=== PATIENT | female | born 1970 | race Caucasian/White ===

== ENCOUNTER 2017-07-02 14:12 | Inpatient (IN) | payer SELFPAY ==
[2017-07-02 15:10] LABS: Hemoglobin 16.2 g/dL (12.0-16.0); Mean Corpuscular HGB CONC 33.8 g/dL (32.0-36.0); Mean Corpuscular Hemoglobin 34.4 pg (27.0-31.0); RBC Distribution Width 12.5 % (11.5-14.5); Red Blood Cell (RBC) Count 4.72 mill/uL (4.20-5.40); White Blood Cell (WBC) Count 2.9 thou/uL (4.8-10.8)
[2017-07-02 15:26] LABS: ALT (SGPT) 75 U/L (8-55); AST (SGOT) 166 U/L (5-34); Alkaline Phosphatase 156 U/L (40-150); Anion Gap 12 mmol/L (10-20); BUN (Urea Nitrogen) 12 mg/dL (7.0-18.7); Bilirubin, Direct 7.9 mg/dL (0.1-0.3); Bilirubin, Total 10.3 mg/dL (0.2-1.2); Calc. Creatinine Clearance 0 mL/min (70-130); Calcium 8.7 mg/dL (7.8-10.44); Carbon Dioxide 22 mmol/L (22-29); Chloride 103 mmol/L (98-107); Estimated GFR-MDRD Greater than 90; Globulin 4.4 g/dL (2.4-3.5); Glucose 89 mg/dL (70-105); Lipase 42 U/L (8-78); Potassium 3.7 mmol/L (3.5-5.1); Protein, Total 7.4 g/dL (6.0-8.3); Sodium 133 mmol/L (136-145)
[2017-07-02 15:33] LABS: #Lymphocytes 0.9 thou/uL (1.20-3.40); #Monocytes 0.2 thou/uL (0.11-0.59); #Neutrophils 1.7 thou/uL (1.40-6.50); %Eosinophils 1.1 % (0.0-10.0); %Lymphocytes 32.2 % (21.0-51.0); %Monocytes 8.3 % (0.0-10.0); %Neutrophils 57.4 % (42.0-75.0); PLT Morphology Comment Appears Decreased; Platelet Count 42 thou/uL (130-400)
--- NOTE | 2017-07-02 16:03 | ULT ---
GALLBLADDER ULTRASOUND: 07/02/17 COMPARISON: No prior comparison. CLINICAL HISTORY: Abdominal pain, epigastric pain. FINDINGS: There is increased echogenicity of hepatic parenchyma. Distended gallbladder with abnormal increased echogenicity and shadowing present. Gallbladder wall is mildly prominent, slightly greater than 3 mm in thickness. The common duct is mildly dilated at 6 mm in diameter. IMPRESSION: 1. Evidence of cholelithiasis. Associated cholecystitis not excluded with a mildly thickened gal lbladder wall. Correlate clinically. 2. Mild prominence of common duct. Recommend correlation with biliary laboratory values to exclu de biliary obstructive process. 3. Increased echogenicity of the hepatic parenchyma which can be seen with hepatic steatosis. Co rrelation with liver function enzymes may prove useful. POS: OSCAR
[2017-07-02 17:00] LABS: INR-International Normal Ratio 1.4; Prothrombin Time 17.3 SEC (12.0-14.7)
[2017-07-02 17:04] LABS: PTT 33.4 SEC (22.9-36.1)
[2017-07-02] MEDS ORDERED: Sodium Chloride 0.9% 1,000 ML IV SCH (17:15)
[2017-07-02] MEDS ORDERED: Dextrose 50% Abboject 50 ML SYRINGE SLOW IVP PRN (17:46)
[2017-07-02] MEDS ORDERED: Dextrose 5% in Water 1,000 ML IV PRN (17:46)
[2017-07-02] MEDS ORDERED: Ondansetron ODT 4 MG TAB PO PRN (17:46)
[2017-07-02] MEDS ORDERED: Ondansetron HCl/PF 4 MG/2 ML Vial IVP PRN (17:46)
--- NOTE | 2017-07-02 17:49 | HP ---
DATE OF ADMISSION: 07/02/2017 HISTORY OF PRESENT ILLNESS: A 46-year-old woman presented to the emergency department with insidious onset sharp epigastric to right upper quadrant abdominal pain, which started mid morning yesterday. Pain started after breakfast. Next, the pain is described as severe, sharp, rated at 8/10 without any nausea or vomiting. Patient denies any bloating or flatulence. She denies any diarrhea. Although, she did not check her temperature. She broke out in sweats last night. She denies any chills. Patient presented to the emergency department today after her pain had intensified to 9-10/10. She is otherwise awake and alert. She moves all extremities and answers questions appropriately. Kae coma scale is 15. PAST MEDICAL HISTORY: Unremarkable. PAST SURGICAL HISTORY: She denies any previous surgeries. SOCIAL HISTORY: She is single, lives independently. 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 She drinks 6-7 beers a day and has done so for many years. She did have alcohol withdrawal 1 month ago. She denies any cigarette smoking or illicit drug abuse, although, she is exposed to tremendous amount of secondhand smoking due to working environment. FAMILY HISTORY: Notable for her mother who at the age 62 with complications of heart disease and a father at age 52 from complications of colon cancer. She denies any family history of diabetes mellitus. PREHOSPITALIZATION MEDICATION: None except for occasional Benadryl. ALLERGIES: Patient denies any known drug allergies. REVIEW OF SYSTEMS: A 10-point review of systems is essentially unremarkable except for as stated in past medical history and chief complaint. PHYSICAL EXAMINATION: GENERAL: This reveals a 46-year-old normally developed woman who is otherwise coherent and interactive and appears stated age. Patient is alert and oriented x3. She appears to be in no significant acute distress at the time of my evaluation, having received some intravenous morphine sulfate. VITAL SIGNS: Includes blood pressure 123/73, pulse 77, respiratory rate is 19, temperature 98.2 degrees Fahrenheit, oxygen saturation is 100% on room air. HEENT: Reveals normocephalic and atraumatic. Pupils are equally, round, and reactive to light and accommodation. She has bilateral scleral icterus present. Oral mucosa is dry, although pink with no intraoral lesions present. She has no jugular venous distention noted. HEART: Reveals regular rate and rhythm, no murmurs or gallops auscultated. LUNGS: Clear to auscultation bilaterally. Her breathing regular and unlabored. ABDOMEN: Soft with exquisite tenderness in the epigastrium to right upper quadrant. Liver and spleen are otherwise nonpalpable below costal margins. EXTREMITIES: Reveals 2+ radial and pedal pulses bilaterally. No ankle edema is present. NEUROLOGIC: Cranial nerves II-XII grossly intact bilaterally. No focal neurologic deficits are present. PERTINENT LABORATORY FINDINGS: Today includes a CBC with 2900 white blood cells , hemoglobin and hematocrit 16.2 and 48.0 respectively. Platelet count is low at 42,000. Metabolic profile: Sodium 133, potassium is 3.7, chloride is 103, bicarbonate is 22, BUN 12, creatinine 0.64, glucose is 89. Total bilirubin 10.3 , direct bilirubin 7.9, AST and ALT are elevated at 166 and 75 respectively. Alkaline phosphatase is also elevated at 156. Serum lipase is normal at 42. I have reviewed the abdominal ultrasound, which reveals multiple intraluminal gallstones and a dilated gallbladder with mild gallbladder wall thickening. The common bile duct size is dilated for this patient's age at 6.4 mm. IMPRESSION: 1. Acute cholecystitis with cholelithiasis. 2. Probable choledocholithiasis. 3. Leukopenia and thrombocytopenia, likely secondary to #1. 4. History of chronic alcoholism with possible acute alcoholic hepatitis PLAN: 1. We will ask Gastroenterology to evaluate the patient in consideration for preoperative ERCP. 2. Laparoscopic cholecystectomy plus or minus intraoperative cholangiogram. The above findings and plan has been discussed with the patient who indicates understanding of this information given. I have answered all questions. The patient has been made aware of the risks and benefits of the proposed surgery. Risks include, but not limited to bleeding, infection, injury to bile duct or surrounding structures. She indicates understanding of this information. Patient has granted consent for this admission and surgical intervention. SURYA
[2017-07-02] MEDS ORDERED: Thiamine HCl 200 MG/2 ML VIAL SLOW IVP SCH ×2 (18:00→20:00)
[2017-07-02] MEDS ORDERED: Piperacillin/Tazobactam 4.5 GM in Sodium Chloride 0.9% 100 ML IVPB SCH (18:00)
[2017-07-02] MEDS ORDERED: Acetaminophen 1,000 MG in Premix Bag 1 BAG IVPB SCH ×2 (18:00→20:00)
[2017-07-02] MEDS ORDERED: Ketorolac Tromethamine 30 MG/ML VIAL IVP SCH (18:00)
[2017-07-02 18:15] VITALS: BMI 31.1
[2017-07-02] MEDS: Sodium Chloride 0.9% 1,000 ML IV SCH (20:10)
[2017-07-02] MEDS: Famotidine/PF 20 mg/2ml Vial SLOW IVP SCH (20:14)
[2017-07-02] MEDS: Ketorolac Tromethamine 30 MG/ML VIAL IVP SCH (20:14)
[2017-07-02] MEDS: Piperacillin/Tazobactam 4.5 GM in Sodium Chloride 0.9% 100 ML IVPB SCH (20:28)
--- NOTE | 2017-07-02 21:01 | CON ---
DATE OF CONSULTATION: 07/02/2017 CHIEF COMPLAINT: Abdominal pain. HISTORY OF PRESENT ILLNESS: Ms. Whitman is a 46-year-old woman who presented to the emergency room t melisa with right upper quadrant pain. She reports that she woke up with pain in the right upper quadr ant 2 days ago and this remained constant throughout the day and worsened yesterday, but also remaine d constant throughout the day. The pain did worsen after breakfast this morning and she came to the emergency room for further care. She has had no nausea or vomiting with this. No chest pain or shor tness of breath, no fevers, no diarrhea or constipation. The pain is in the epigastric region and ra diates towards the right upper quadrant around towards the right back. She has had some similar shor t-lived episodes of pain around once a month, sometimes after meals. Her weight has been stable. Juanito patel denies prior liver problems. PAST MEDICAL HISTORY: Otherwise, negative. PAST SURGICAL HISTORY: Negative. FAMILY HISTORY: Positive for colon cancer in her father. He was diagnosed at age 51 and at age 52. Her mother of a heart attack at age 62. SOCIAL HISTORY: She admits to drinking 8-12 beers per day, sometimes more. Her friend with her osorio cates that she drinks much more heavily than that. 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 Her boyfriend owns a bar. She did quit smoking 13 years ago, but is exposed to a lot of secondhand smoke in the bar. Juanito patel denies drug use in the past. ALLERGIES: No known drug allergies. MEDICATIONS: Prior to admission, she took Aleve once 2 weeks ago. She has taken no Tylenol. REVIEW OF SYSTEMS: Negative x10 systems reviewed except as stated in history of present illness. PHYSICAL EXAMINATION: VITAL SIGNS: Temperature 97.8, pulse 77, blood pressure 105/68. GENERAL: She is in no acute distress. HEENT: She has scleral icterus. Oropharynx is clear, without lesions. NECK: There is no cervical or supraclavicular lymphadenopathy. SKIN: Reveals small spider angiomas on multiple areas in her chest. NEUROLOGIC: She has no asterixis. LUNGS: Clear to auscultation bilaterally. HEART: Regular rate and rhythm without murmur. ABDOMEN: Soft. Bowel sounds are present. She is tender to palpation in the right upper quadrant wi thout guarding. EXTREMITIES: No lower extremity edema. Of note, she did have morphine in the ER prior to my exam now on the floor. LABORATORY DATA: White blood cell count 2.9, hemoglobin 16.2, platelets 42. INR 1.4, creatinine 0.6 4, bilirubin 10.3, direct bilirubin 7.9, AST 166, ALT 75, alkaline phosphatase 156, albumin 3.0, lipa se 42, globulin 4.4. IMAGING: Ultrasound of the gallbladder shows cholelithiasis. There is mild thickening of the gallbl adder wall without other signs of acute cholecystitis. The common bile duct is 6 mm. There is incre ased echogenicity of the liver. IMPRESSION: 1. Acute alcoholic hepatitis, most likely with underlying cirrhosis. Her AST is twice the ALT. She has bilirubin significantly higher and proportion to the elevation of the alkaline phosphatase. Her albumin is low. Her platelets and white blood cell count are low, likely secondary to hypersplenism from portal hypertension. INR is elevated at 1.4. We will need to evaluate further causes of under lying liver disease including viral hepatitis panel. She does have an elevated globulin, so autoimmu ne hepatitis has to be considered as well; however, the transaminases are not significantly elevated to suggest acute autoimmune hepatitis. 2. Right upper quadrant pain. This could be due to symptomatic gallstones. The gallbladder wall th ickening is likely due to portal hypertension from the alcoholic hepatitis. Her right upper quadrant pain is suggestive of gallbladder origin; however, she would be high risk for surgery at this time a nd we will continue to monitor this clinically. HIDA scan will be nondiagnostic given the elevation of her bilirubin. I doubt that she has choledocholithiasis given a 6 mm bile duct and alternative ex planation for her elevated bilirubin. RECOMMENDATIONS: 1. We will check MRCP in the morning to rule out an obvious stone in the common bile duct; however, again, I think this is unlikely. 2. She should be supplemented with thiamine and monitored for delirium tremens. 3. Check viral hepatitis panel and markers for autoimmune liver disease and we will also send additi onal labs for other causes of liver disease. 4. Importance of alcohol cessation has been discussed with her. 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 He r friend also indicated that she was diagnosed with some type of liver disease previously, but there is no known history about this or prior workup as the patient does not admit to it at this time. 5. Discontinue acetaminophen. 6. She is being covered with antibiotics.
[2017-07-02] MEDS: Oxazepam 10 MG CAP PO SCH (21:11)
[2017-07-02 21:34] LABS: Iron 257 ug/dL (50-170); Iron Binding Capacity, Total 254 mcg/dL (265-497)
[2017-07-02 21:53] LABS: Ferritin 513.96 ng/mL (10-291)
[2017-07-02 23:56] LABS: Hep B Core Total Ab Non-Reactive (NonReactive); Hep B Core Total Index 0.12 S/CO (0-0.79)
[2017-07-03] MEDS: Ketorolac Tromethamine 30 MG/ML VIAL IVP SCH ×4 (01:40→20:59)
[2017-07-03] MEDS: Piperacillin/Tazobactam 4.5 GM in Sodium Chloride 0.9% 100 ML IVPB SCH ×4 (01:41→20:59)
[2017-07-03] MEDS: Sodium Chloride 0.9% 1,000 ML IV SCH ×3 (01:48→21:01)
[2017-07-03 02:24] LABS: HBSAg Index 0.36 S/CO (0-0.99); Hep B Surf Ag Non-Reactive S/CO (NonReactive)
[2017-07-03 02:25] LABS: HBSAB Concentration 0.03 mIU/mL; Hep B Surf AB Non-Reactive (NonReactive)
[2017-07-03 03:58] LABS: HBCM Index 0.12 S/CO (0-0.79); Hep A IgM AB Non-Reactive (NonReactive); Hep A IgM S/CO 0.17 S/CO (0-0.79); Hepatitis B Core IGM Abs Non-Reactive (NonReactive)
[2017-07-03 04:17] LABS: Hep C IgG Ab Reflex HepC Qnt (NonReactive)
[2017-07-03] MEDS: Oxazepam 10 MG CAP PO SCH ×3 (05:27→21:11)
[2017-07-03 05:54] LABS: #Eosinphils 0.1 thou/uL (0.0-0.7); #Lymphocytes 1.1 thou/uL (1.20-3.40); #Monocytes 0.4 thou/uL (0.11-0.59); #Neutrophils 1.6 thou/uL (1.40-6.50); %Basophils 0.4 % (0.0-1.0); %Eosinophils 1.6 % (0.0-10.0); %Lymphocytes 35.4 % (21.0-51.0); %Monocytes 11.6 % (0.0-10.0); %Neutrophils 50.9 % (42.0-75.0); Mean Corpuscular HGB CONC 33.4 g/dL (32.0-36.0); Mean Corpuscular Hemoglobin 34.6 pg (27.0-31.0); Mean Platelet Volume 7.9 fL (7.4-10.4); Platelet Count 35 thou/uL (130-400); RBC Distribution Width 12.5 % (11.5-14.5); Red Blood Cell (RBC) Count 4.03 mill/uL (4.20-5.40); White Blood Cell (WBC) Count 3.1 thou/uL (4.8-10.8)
[2017-07-03 06:15] LABS: Anion Gap 9 mmol/L (10-20); BUN (Urea Nitrogen) 16 mg/dL (7.0-18.7); Calc. Creatinine Clearance 172 mL/min (70-130); Calcium 8.1 mg/dL (7.8-10.44); Carbon Dioxide 23 mmol/L (22-29); Chloride 106 mmol/L (98-107); Estimated GFR-MDRD Greater than 90; Glucose 70 mg/dL (70-105); Magnesium 1.3 mg/dL (1.6-2.6); Phosphorus 3.8 mg/dL (2.3-4.7); Potassium 3.6 mmol/L (3.5-5.1); Sodium 134 mmol/L (136-145)
[2017-07-03] MEDS: Famotidine/PF 20 mg/2ml Vial SLOW IVP SCH ×2 (07:42→21:00)
[2017-07-03] MEDS: Multivit, Therapeutic 1 TAB PO SCH (07:44)
[2017-07-03] MEDS: Folic Acid 1 MG TAB PO SCH (07:45)
[2017-07-03 08:20] LABS: ALT (SGPT) 60 U/L (8-55); AST (SGOT) 124 U/L (5-34); Albumin 2.5 g/dL (3.5-5.0); Alkaline Phosphatase 133 U/L (40-150); Bilirubin, Direct 8.7 mg/dL (0.1-0.3); Bilirubin, Total 11.3 mg/dL (0.2-1.2); Protein, Total 5.9 g/dL (6.0-8.3)
[2017-07-03] MEDS ORDERED: FLU VACC QS2017-18 36 mo. & older 0.5 ML SYRINGE IM ONE (09:00)
--- NOTE | 2017-07-03 12:45 | MRI ---
MRI OF THE ABDOMEN NONCONTRAST MRCP NONCONTRAST WITH 3D VOLUME RENDING: Comparison: Preceding gallbladder ultrasound previous day. Clinical history: Abdominal pain, epigastric pain, cholelithiasis. Evaluate for choledocholithiasis. FINDINGS: Motion artifact markedly limits evaluation of the MRCP imaging portion of the exam with multifocal ar eas of signal drop out due to distortion by motion which precludes reliable evaluation for potential choledocholithiasis. There are gallstones present within a mildly a distended gallbladder. There is m ild prominence of the gallbladder wall, as well. Slight degree of signal drop between in phase and ou t of phase imaging indicates a component of hepatic steatosis. Borderline sized spleen is noted. Unen hanced kidneys are grossly unremarkable. Limited evaluation of the adrenal glands by motion. No perip ancreatic edema. No ascites of significance visualized. Regional marrow is grossly unremarkable. IMPRESSION: 1. Cholelithiasis with a distended gallbladder and mild gallbladder wall thickening. Trace pericholec ystic fluid is seen. Correlate for evidence of cholecystitis. 2. Limited evaluation of the biliary ductal system due to distortion by prominent patient motion thro ughout the exam. This does preclude reliable evaluation for detection of choledocholithiasis as well as limits visualization of the biliary ducts. POS: OSCAR
[2017-07-03 14:43] LABS: ANA Symphony (Qualitative) POSITIVE (Negative); ANA Symphony (Quantitative) 2.5 Ratio (<0.7 Negative); CENP IgG Antibody 0.9 EliAU/mL (<7 Negative); Jo-1 IgG Antibody 0.6 EliAU/mL (<7 Negative); RNP70 IgG Antibody 0.5 EliAU/mL (<7 Negative); SSA/Ro IgG Antibody 0.5 EliAU/mL (<7 Negative); SSB/La IgG Antibody 0.7 EliAU/mL (<7 Negative); Scleroderma-70 IgG Antibody 1.7 EliAU/mL (<7 Negative); Smith D IgG Antibody 2.2 EliAU/mL (<7 Negative)
--- NOTE | 2017-07-03 17:35 | PRG ---
DATE OF SERVICE: 07/03/2017 SUBJECTIVE: Ms. Whitman's pain is greatly improved today. She has had no nausea or vomiting. She i s not requiring IV pain medicine since yesterday. OBJECTIVE: VITAL SIGNS: Temperature 97.4, pulse 89, blood pressure 109/71, oxygen saturation 94% on 2 liters. GENERAL: She is jaundiced, in no acute distress. LUNGS: Clear to auscultation bilaterally. HEART: Regular rate and rhythm. ABDOMEN: Soft, much less tender in the right upper quadrant than yesterday. Bowel sounds are presen t. EXTREMITIES: No lower extremity edema. LABORATORY DATA: White blood cell count 3.1, hemoglobin 14.0, platelets 35. INR 1.4 yesterday. Cre atinine 0.68, bilirubin 11.3, AST 124, ALT 60, alkaline phosphatase 133, albumin 2.5. Hepatitis C an tibody was positive, hepatitis B antigen is negative. Hepatitis A IgM is negative. IMPRESSION: 1. Acute alcoholic hepatitis. She likely has underlying cirrhosis. Her hepatitis C antibody is pos itive and we will check genotype and RNA level. She has evidence of decompensation with an elevated INR and low albumin. Her bilirubin is significantly elevated consistent with acute alcoholic hepatit is. Alkaline phosphatase has returned to normal. I doubt that she has choledocholithiasis. MRCP to day was nondiagnostic with motion artifact. 2. Possible cholecystitis with right upper quadrant pain and gallstones and gallbladder wall thicken ing. The mild gallbladder wall thickening and fluid could be related to portal hypertension; however , given the gallstones and right upper quadrant pain, she certainly could have cholecystitis. Her pa in is much improved today with antibiotics. She would be very high risk for surgery at this point an d we will continue to try to treat this medically for now. Again, her pain is markedly improved toda y compared to yesterday. RECOMMENDATIONS: 1. Continue supportive care and IV antibiotics. 2. Monitor for DTs. She has received thiamine and multiple vitamins. 3. We will continue to follow the trend of liver function tests including INR tomorrow. 4. Alcohol cessation.
--- NOTE | 2017-07-03 20:09 | PRG ---
DATE OF SERVICE: 07/03/2017 SUBJECTIVE: I saw Ms. Whitman earlier today. She is a 46-year-old woman with history of chronic alc oholism, who presented with epigastric to right upper quadrant abdominal pain. LFTs were markedly el evated. Gallbladder also on image studies was dilated with intraluminal gallstones as well as gallbl adder wall thickening. MRCP today also confirms inflammation around the gallbladder with intralumina l gallstones, no evidence of choledocholithiasis. The patient reports decreasing abdominal pain from yesterday. She denies any nausea. OBJECTIVE: VITAL SIGNS: Today include a blood pressure 101/63, pulse 81, respiratory rate of 16, temperature 97 .5 degrees Fahrenheit, oxygen saturation 94% on room air. HEENT: Reveals normocephalic and atraumatic. Pupils remain icteric. HEART: Reveals regular rate and rhythm, no murmurs or gallops auscultated. LUNGS: Clear to auscultation bilaterally. Breathing is regular and unlabored. ABDOMEN: Soft with moderate epigastric to right upper quadrant tenderness to palpation. No gross re bound tenderness present. NEUROLOGIC: Reveals no focal deficits present. LABORATORY DATA: Today includes a CBC with 3100 white blood cells, hemoglobin is 14.0, hematocrit is 41.8, platelet count is 35,000. Metabolic profile: Sodium 134, potassium 3.6, chloride is 106, bic arbonate 23, BUN 16, creatinine 0.68, glucose 70, magnesium is 1.3, total bilirubin 11.3, direct bili bear 8.7, AST and ALT remain elevated at 124 and 60 respectively. Alkaline phosphatase is within no rmal range today at 133. IMPRESSION: 1. Acute alcoholic hepatitis. 2. Acute cholecystitis with cholelithiasis. PLAN: 1. Discussed with Dr. Orona with Gastroenterology. We both concurred that the patient is a high ris k for any operative intervention in the face of an acute alcoholic hepatitis. 2. We will therefore continue with the conservative management including antibiotic therapy to cover the usual bacteria in the biliary tract. 3. We will resume full liquid diet as patient tolerates. The above findings and plan discussed with the patient and her family at bedside. They indicated und erstanding of information given. I did answer their questions.
[2017-07-04] MEDS: Sodium Chloride 0.9% 1,000 ML IV SCH ×3 (01:43→21:47)
[2017-07-04] MEDS: Piperacillin/Tazobactam 4.5 GM in Sodium Chloride 0.9% 100 ML IVPB SCH ×4 (02:30→21:47)
[2017-07-04] MEDS: Ketorolac Tromethamine 30 MG/ML VIAL IVP SCH ×4 (02:30→21:46)
[2017-07-04 03:16] LABS: Hepatitis A Total ABS Positive (Negative)
[2017-07-04] MEDS: Oxazepam 10 MG CAP PO SCH ×3 (05:25→21:47)
[2017-07-04 05:51] LABS: INR-International Normal Ratio 1.7; Prothrombin Time 20.6 SEC (12.0-14.7)
[2017-07-04 06:12] LABS: ALT (SGPT) 46 U/L (8-55); AST (SGOT) 96 U/L (5-34); Albumin 2.3 g/dL (3.5-5.0); Alkaline Phosphatase 133 U/L (40-150); Anion Gap 10 mmol/L (10-20); BUN (Urea Nitrogen) 16 mg/dL (7.0-18.7); Bilirubin, Total 12.4 mg/dL (0.2-1.2); Calc. Creatinine Clearance 170 mL/min (70-130); Calcium 7.7 mg/dL (7.8-10.44); Carbon Dioxide 20 mmol/L (22-29); Chloride 108 mmol/L (98-107); Estimated GFR-MDRD Greater than 90; Globulin 3.5 g/dL (2.4-3.5); Glucose 80 mg/dL (70-105); Potassium 3.5 mmol/L (3.5-5.1); Protein, Total 5.8 g/dL (6.0-8.3); Sodium 134 mmol/L (136-145)
[2017-07-04 06:21] LABS: #Eosinphils 0.1 thou/uL (0.0-0.7); #Lymphocytes 0.7 thou/uL (1.20-3.40); #Monocytes 0.3 thou/uL (0.11-0.59); #Neutrophils 1.4 thou/uL (1.40-6.50); %Eosinophils 2.5 % (0.0-10.0); %Lymphocytes 27.8 % (21.0-51.0); %Monocytes 10.4 % (0.0-10.0); %Neutrophils 58.4 % (42.0-75.0); Hemoglobin 13.6 g/dL (12.0-16.0); Mean Corpuscular HGB CONC 33.6 g/dL (32.0-36.0); Mean Corpuscular Hemoglobin 34.9 pg (27.0-31.0); Mean Platelet Volume 7.8 fL (7.4-10.4); Platelet Count 36 thou/uL (130-400); RBC Distribution Width 12.8 % (11.5-14.5); Red Blood Cell (RBC) Count 3.91 mill/uL (4.20-5.40); White Blood Cell (WBC) Count 2.4 thou/uL (4.8-10.8)
[2017-07-04] MEDS: Multivit, Therapeutic 1 TAB PO SCH (08:38)
[2017-07-04] MEDS: Folic Acid 1 MG TAB PO SCH (08:38)
[2017-07-04] MEDS: Famotidine/PF 20 mg/2ml Vial SLOW IVP SCH ×2 (08:39→21:46)
--- NOTE | 2017-07-04 12:18 | PDOC.PN ---
- Subjective Encounter Start Date: 07/04/17 Encounter Start Time: 12:10 -: old records requested/rev Pt seen and exmained, chart reviewed in its entirety, this si my first visit iwth this patient. Admitted 2 days ago for RUQ pain, cholelithiasis, probably cholecystitis, heavy EtOH use and increased LFTs. Admitted by Trauma team, felt to not be a good surgical candidate, improving onIV abx. AI hepatitis now possible with anti-U1 [employer] antibodies positive, Pt also Hep C positive, RNA VL pending due to no plans for surgery, we were asked to assume care. No F/c, no N/V,D/C, no CP or SOB, RUQ pain improved 10 point ROS performed and neg for all systems except as per HPI - Objective Resuscitation Status: Resuscitation Status FULL:Full Resuscitation MAR Reviewed: Yes Vital Signs & Weight: Vital Signs (12 hours) Temp Pulse Resp BP Pulse Ox 07/04/17 08:00 97.8 F 88 24 H 07/04/17 07:19 97.8 F 88 24 H 123/74 91 L 07/04/17 06:20 82 18 86 L 07/04/17 04:08 98.2 F 80 20 99/61 90 L Weight Weight 230 lb I&O: 07/03/17 07/04/17 07/05/17 06:59 06:59 06:59 Intake Total 1645 1500 Balance 1645 1500 Result Diagrams: 07/04/17 05:24 07/04/17 05:24 Radiology Reviewed by me: Yes EKG Reviewed by me: Yes Phys Exam - Physical Examination Constitutional: NAD HEENT: PERRLA, moist MMs, oral pharynx no lesions +icterus Neck: no nodes, no JVD, supple, full ROM Respiratory: no wheezing, no rales, no rhonchi, clear to auscultation bilateral Cardiovascular: RRR, no significant murmur, no rub Gastrointestinal: soft, no distention, positive bowel sounds minimal tenderness to palpation Musculoskeletal: no edema, pulses present Neurological: non-focal, normal sensation, moves all 4 limbs Lymphatic: no nodes Psychiatric: normal affect, A&O x 3 Skin: no rash, normal turgor, cap refill <2 seconds Dx/Plan - Plan * .
--- NOTE | 2017-07-04 17:06 | CON ---
INITIAL INPATIENT CONSULTATION NOTE DATE OF CONSULTATION: 07/04/2017 REQUESTING PHYSICIAN: Pino Hugo D.O. REASON FOR CONSULTATION: Transfer of service. HISTORY OF PRESENT ILLNESS: Ms. Whitman is a pleasant 46-year-old female with history of chronic alc ohol use, no other known history. She presented to the Emergency Department initially on 07/02/2017 with complaints of abdominal pain. Workup in the Emergency Department revealed transaminitis. Abdominal ultrasound showed mild perichol ecystic fluid, multiple gallstones, but no evidence of ductal dilatation or ductal obstruction, and s he was subsequently admitted to the Trauma Service on the morning of 07/02/2017. GI was consulted for concern of possible choledocholithiasis, and patient was seen by Dr. Orona. He thought she had alcoholic hepatitis, and less likely to be choledocholithiasis. [facility], hepatitis A, B, and C antibodies, and thought she had some mild compensated cirrhosis due to a low white count, platelets, albumin and increased INR. The patient was started on antibiotics empirically and felt to not be a very good operative candidate . Overnight 07/02-07/03, she remained fairly stable. She had no fevers, her vital signs showed a no rmal heart rate and a blood pressure in the low 100s. On 07/03/2017, she underwent MRI of the abdomen that showed cholelithiasis and distended gallbladder and mild gallbladder wall thickening with trace pericholecystic fluid. There was too much motion art ifact to get a good assessment of the biliary ductal system. Hepatitis C serologies came back positive A and it was positive for past infection, but not current, and hepatitis B serologies were negative. She was placed on ASE protocol, felt to have alcoholic, vi ral hepatitis C, possible autoimmune, and biliary hepatitis. On 07/04/2017, the patient was deemed to be an operative candidate. I was consulted by the Trauma Se rvmary to evaluate the patient and transfer to my service for ongoing medical care. PAST MEDICAL HISTORY: 1. Alcohol abuse. 2. Probable cirrhosis. 3. New diagnosis of hepatitis C, status unknown. 4. Past history of hepatitis A. 5. 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 PAST SURGICAL HISTORY: Negative. HOME MEDICATIONS: None. ALLERGIES: NKDA. SOCIAL HISTORY: She is single, lives independently. 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 She did have some alcohol w ithdrawal symptoms about a month ago when she tried to quit drinking. She does not smoke cigarettes, use IV drugs. FAMILY HISTORY: Mom at age 62 with complications of heart disease. Dad at age 52 with col on cancer complications. No family history of diabetes or recurrent premature coronary disease. No history of SLE or rheumatoid arthritis. REVIEW OF SYSTEMS: A 10-point review of systems was performed and is negative for all systems except as stated per HPI. PHYSICAL EXAMINATION: VITAL SIGNS: Temperature 97.9, pulse 79, blood pressure 117/77, respiratory rate 15 and satting 91% on 2 liters nasal cannula. GENERAL: She is awake. She is alert. She is oriented x3. She is jaundiced appearing obese white f emale who is in no acute distress. HEENT: Normocephalic and atraumatic. Pupils are equal, round and reacting to light bilaterally. Sh e has bilateral scleral icterus. Mucous membranes are moist. She has no visible lesions. She has n o thrush. NECK: Supple, without lymphadenopathy, JVD, or thyromegaly. She has normal carotids without bruits. LUNGS: Clear to auscultation bilaterally. She has no wheezes, no rales, no rhonchi. She has good a ir movement and symmetrical chest excursion. No prolonged expiratory phase. CARDIOVASCULAR: She has normal cardiac and regular. Normal S1 and S2. She has a faint holosystolic murmur best heard at the apex. Approximately 2/6. ABDOMEN: Obese. It is minimally tender. She has no rebound, rigidity or guarding. She has good cedric wel sounds in all 4 quadrants. I do not detect hepatosplenomegaly. EXTREMITIES: No cyanosis, no clubbing. Trace pedal edema. SKIN: Warm, moist and well perfused. She is jaundiced, but there are no other rashes or lesions. MUSCULOSKELETAL: Normal to inspection. She has normal appearing joints. There is no inflammation a nd no palpable effusions. NEUROLOGIC: Cranial nerves II-XII are grossly intact. She has no focal neurologic deficits. She munguia s 5/5 strength in all 4 extremities. PSYCHIATRIC: She has normal speech pattern. LABORATORY DATA: White blood cell count today is 2.4, which is stable, hemoglobin 13.6, hematocrit o f 44.5, and platelet count is 36,000 relatively stable. She has a fairly normal differential. Coagu lation today showed a PT of 20.6 with an INR of 1.7. CMP today shows sodium of 134, potassium 3.5, c hloride 108, bicarbonate 20, BUN 16, creatinine 0.69 and calcium 7.7. Total bilirubin today is 12.4, slightly increased from yesterday at 11.3. AST is 96, down from 166 on admission. Her ALT is tania l at 46, down from 75 on admission. Alkaline phosphatase today is 133, down from 156 on admission. Serum albumin is 2.3, down from 3.0 on admission. She had an KRYSTA panel drawn on 07/02 that is positi ve on the screen. There is no listed titer. Her anti-U1 DRILLING AND PRODUCTION SUPERINTENDENT IgG was 21, which is elevated above the normal of 5. The rest of her KRYSTA panel is otherwise negative. Serologic studies showed a positive hepatitis A antibody total and a negative IgM meaning past exposure. She had negative hepatitis B quiroz rface antigen, surface antibody, core antibody total and core IgM. Hepatitis C antibody is positive reflex. Hepatitis C quantitative. PCR is currently pending. ASSESSMENT: 1. Acute cholecystitis. 2. Probable autoimmune hepatitis and mixed connective tissue disease. 3. Chronic alcohol abuse with acute alcoholic hepatitis. 4. Hepatitis C, likely chronic, status currently unknown. 5. Probable cirrhosis. 6. Coagulopathy related to cirrhosis. 7. Leukopenia and thrombocytopenia secondary to cirrhosis. 8. Jaundice/hyperbilirubinemia. PLAN: At this point, we will continue the patient on Zosyn. We will likely streamline to Unasyn osmin orrow. We will repeat labs in the morning. The patient is currently on a full liquid diet, we will advance per GI recommendations. Surgery has now signed off due to her multiple comorbidities, not a candidate for operative laparoscopic cholecystectomy. We have accepted to the medical service, I jordyn l assume the care and change the attending name to myself. We will continue her on IV fluids and may start on prednisone acutely if we feel this is autoimmune related. We will discuss with Dr. Apollo Orona.
--- NOTE | 2017-07-04 17:22 | PRG ---
DATE OF SERVICE: 07/04/2017 ATTENDING PHYSICIAN: Pino Hugo DO SUBJECTIVE: The patient is a 46-year-old female with a history of alcoholism, who presented with epi gastric and right upper quadrant pain on 07/02/2017. She had markedly elevated LFTs which were initi ally thought to be due to choledocholithiasis and cholelithiasis. GI was consulted and further alexis p revealed a picture more consistent with alcoholic hepatitis, possibly with autoimmune involvement a s the patient was KRYSTA positive. The patient was determined to be a poor surgical candidate. At the time of this evaluation, the patient is reporting decreased abdominal pain. She has had some nausea with meals, but has not had any emesis. OBJECTIVE: VITAL SIGNS: BP 123/74, pulse 88, temperature 97.8, respirations 24, O2 sat 91% on 1.5 liters nasal cannula. GENERAL APPEARANCE: Patient is a middle-aged female who appears jaundiced, but in no acute distress. HEENT: She is normocephalic and atraumatic. She does demonstrate scleral icterus. RESPIRATORY: Her lungs are clear to auscultation bilaterally. She has normal effort of breathing. CARDIOVASCULAR: She has a regular rate and rhythm. She has no murmurs, gallops or rubs. ABDOMEN: She has a moderate epigastric and right upper quadrant tenderness to palpation. Her abdome n is nondistended. She has normal bowel sounds. NEUROLOGIC: She has no focal deficits. She is alert and oriented x3. Her GCS is 15. LABORATORY DATA: White blood cells 2.4, hemoglobin 13.6, hematocrit 40.5, platelets 36. Coagulation : PT 20.6, INR 1.7. Chemistry: Sodium 134, potassium 3.5, chloride 108, bicarbonate 20, BUN 16, cr eatinine 0.69, calcium 7.7. Total bilirubin 12.4. AST 96, ALT 46, alkaline phosphatase 133, serum t otal protein 5.8, albumin 2.3, globulin 3.5, albumin globulin ratio 0.7. RADIOGRAPHIC FINDINGS: There are no images to review today. ASSESSMENT: 1. Acute alcoholic hepatitis. 2. Acute cholecystitis with cholelithiasis. PLAN: 1. There is no indication for surgical intervention with this patient given her likely acute alcohol ic hepatitis. 2. Surgery will sign off on this patient. Dr. Pimentel has agreed to take over care of this patient w ith the medicine service. Please do not hesitate to contact surgery with further questions or with suha dunbar consultation needs if they arise. This patient was seen and examined along with Dr. Pino coker on rounds, who agrees with this assessment and plan.
--- NOTE | 2017-07-04 21:32 | PRG ---
DATE OF SERVICE: 07/04/2017 SUBJECTIVE: Ms. Whitman feels better today. She wants to live more. She is tolerating a full-liqui d diet. PRESENT MEDICATIONS: DuoNeb, D5W, Pepcid, Toradol p.r.n., morphine p.r.n., Theragran p.r.n., Zofran p.r.n., Zosyn, normal saline 100, thiamine, multivitamin, folic acid. PHYSICAL EXAMINATION: VITAL SIGNS: Temperature is 97, pulse 92, blood pressure 114/71. EYES: She is mildly icteric. LUNGS: Clear. HEART: Regular rate and rhythm. ABDOMEN: Nontender. There is no palpable tenderness in the right upper quadrant. She has some slig ht protuberance in the abdomen. EXTREMITIES: She has got some trace edema. She has spider angiomata and she has palmar erythema. LABORATORY STUDIES: White count 2.4, hemoglobin 13.6, platelet count 36,000. Sodium 134, BUN and cr eatinine are 16 and 0.9, chloride is 108, potassium 3.5, bicarbonate 20, anion gap 6, bilirubin is 12 . AST is 96, ALT is 46, alkaline phosphatase is 133. KRYSTA is positive. Smooth muscle antibody and m icro antibody are pending. ASSESSMENT: 1. Elevated liver enzymes, history of heavy alcohol use according to patient's friend. She also sta jocelyn she has occasionally had at times where she has had a big night. She does not drink and the next day she will become shaky and has slight withdrawal symptoms. She has never had delirium tremens. I suspect, the main issue here is acute alcoholic hepatitis, serologies for other etiologies are pend ing. 2. Hepatitis C antibody positive. Reflex is pending. 3. Gallstones, although it is possible that the patient also have acute cholecystitis. In talking t o her, she has not ever had any symptoms of biliary colic in the past before being sick in this past week. She has not had a right upper quadrant pain. I think, it is reasonable to consider treating h er for this. We will continue to push nutrition if she does well tomorrow, we will put her on a low- fat diet.
[2017-07-05] MEDS: Ketorolac Tromethamine 30 MG/ML VIAL IVP SCH ×2 (03:09→08:29)
[2017-07-05] MEDS: Piperacillin/Tazobactam 4.5 GM in Sodium Chloride 0.9% 100 ML IVPB SCH ×4 (03:10→20:54)
[2017-07-05] MEDS: Oxazepam 10 MG CAP PO SCH ×3 (05:27→21:00)
[2017-07-05 05:56] LABS: #Eosinphils 0.1 thou/uL (0.0-0.7); #Lymphocytes 0.6 thou/uL (1.20-3.40); #Monocytes 0.3 thou/uL (0.11-0.59); #Neutrophils 1.5 thou/uL (1.40-6.50); %Basophils 0.9 % (0.0-1.0); %Eosinophils 2.6 % (0.0-10.0); %Lymphocytes 25.3 % (21.0-51.0); %Monocytes 10.4 % (0.0-10.0); %Neutrophils 60.9 % (42.0-75.0); Mean Corpuscular HGB CONC 32.3 g/dL (32.0-36.0); Mean Corpuscular Hemoglobin 34.6 pg (27.0-31.0); Mean Platelet Volume 7.7 fL (7.4-10.4); Platelet Count 39 thou/uL (130-400); RBC Distribution Width 13.1 % (11.5-14.5); Red Blood Cell (RBC) Count 3.77 mill/uL (4.20-5.40); White Blood Cell (WBC) Count 2.5 thou/uL (4.8-10.8)
[2017-07-05 06:28] LABS: ALT (SGPT) 42 U/L (8-55); AST (SGOT) 85 U/L (5-34); Albumin 2.3 g/dL (3.5-5.0); Alkaline Phosphatase 137 U/L (40-150); Anion Gap 9 mmol/L (10-20); BUN (Urea Nitrogen) 12 mg/dL (7.0-18.7); Bilirubin, Total 13.7 mg/dL (0.2-1.2); Calc. Creatinine Clearance 175 mL/min (70-130); Calcium 7.6 mg/dL (7.8-10.44); Carbon Dioxide 20 mmol/L (22-29); Chloride 109 mmol/L (98-107); Estimated GFR-MDRD Greater than 90; Globulin 3.4 g/dL (2.4-3.5); Glucose 82 mg/dL (70-105); Magnesium 1.5 mg/dL (1.6-2.6); Potassium 3.4 mmol/L (3.5-5.1); Protein, Total 5.7 g/dL (6.0-8.3); Sodium 135 mmol/L (136-145)
[2017-07-05] MEDS: Sodium Chloride 0.9% 1,000 ML IV SCH ×3 (08:27→20:54)
[2017-07-05] MEDS: Folic Acid 1 MG TAB PO SCH (08:28)
[2017-07-05] MEDS: Multivit, Therapeutic 1 TAB PO SCH (08:28)
[2017-07-05] MEDS: Famotidine/PF 20 mg/2ml Vial SLOW IVP SCH (08:29)
[2017-07-05 11:15] LABS: HCV log10 3.004 (.); Hep C PCR-Quant 1010 IU/mL (.)
--- NOTE | 2017-07-05 16:32 | PDOC.PN ---
- Subjective Encounter Start Date: 07/05/17 Encounter Start Time: 11:40 pt feeling better, less pain, no f/C, no N/V/d/C, hungry, wanting to EAT. Case discussed with Dr Gray, plan to give fluids and albumin another day. 10 point ROS performed and neg for all systems except as epr hPI Hep C ab positive VL 1000, no likely source of acute issue, but likely contributary to cirrhosis - Objective Resuscitation Status: Resuscitation Status FULL:Full Resuscitation MAR Reviewed: Yes Vital Signs & Weight: Vital Signs (12 hours) Temp Pulse Resp BP Pulse Ox 07/05/17 13:38 84 20 90 L 07/05/17 11:41 97.5 F L 78 26 H 117/81 93 L 07/05/17 10:30 94 L 07/05/17 08:00 97.5 F L 93 22 H 07/05/17 07:41 97.5 F L 93 22 H 107/66 93 L 07/05/17 07:07 93 L 07/05/17 06:59 86 18 93 L Weight Weight 230 lb I&O: 07/04/17 07/05/17 07/06/17 06:59 06:59 06:59 Intake Total 1500 1750 Balance 1500 1750 Result Diagrams: 07/08/17 05:19 07/08/17 05:19 Phys Exam - Physical Examination Constitutional: NAD HEENT: PERRLA, moist MMs, oral pharynx no lesions +incterus Neck: no nodes, no JVD, supple, full ROM Respiratory: no wheezing, no rales, no rhonchi, clear to auscultation bilateral Cardiovascular: RRR, no significant murmur, no rub Gastrointestinal: soft, non-tender, no distention, positive bowel sounds Musculoskeletal: no edema, pulses present Neurological: non-focal, normal sensation, moves all 4 limbs Lymphatic: no nodes Psychiatric: normal affect, A&O x 3 Skin: no rash, normal turgor, cap refill <2 seconds Deviation from normal: + jaundice Dx/Plan (1) Alcoholic hepatitis without ascites Code(s): K70.10 - ALCOHOLIC HEPATITIS WITHOUT ASCITES Status: Acute Comment : improving daily (2) Chronic hepatitis Code(s): K73.9 - CHRONIC HEPATITIS, UNSPECIFIED Status: Acute Comment: total Ab positive, VL only 1000. will need Rx at some point with carmen (3) Acute calculous cholecystitis Code(s): K80.00 - CALCULUS OF GALLBLADDER W ACUTE CHOLECYST W/O OBSTRUCTION Status: Acute Comment: abx, no surgery insetting of suspected acute alcoholic hepatitis. (4) Alcohol dependence Code(s): F10.20 - ALCOHOL DEPENDENCE, UNCOMPLICATED Status: Chronic Qualifiers: Substance use status: in withdrawal Comment: on meds, ASE scores (5) Cirrhosis Code(s): K74.60 - UNSPECIFIED CIRRHOSIS OF LIVER Status: Acute Qualifiers: Hepatic cirrhosis type: alcoholic cirrhosis Ascites presence: without ascites Qualified Code(s): K70.30 - Alcoholic cirrhosis of liver without ascites Comment: probably due to chronic hep C also (6) Coagulopathy Status: Chronic Comment: due to cirrhosis (7) Thrombocytopenia Code(s): D69.6 - THROMBOCYTOPENIA, UNSPECIFIED Status: Chronic Comment: due to cirrosis-induced portal hypertension and sequestration - Plan cont current plan of care, plan discussed w/ family, continue antibiotics, PT/OT , out of bed/ambulate, DVT proph w/SCDs * .
--- NOTE | 2017-07-05 18:47 | PRG ---
DATE OF SERVICE: 07/05/2017 Ms. Whitman states she feels a bit tired today. She does note that certain medications make her feel a little bit nauseated. She had no melena or vomiting. She had no fever. Right upper quadrant brendan n is better. She wants to eat regular food. MEDICATIONS: Albuterol, Pepcid, folic acid, glucagon, Toradol, morphine p.r.n., Zofran p.r.n., Serax , Zosyn, normal saline 100 an hour, thiamine daily. OBJECTIVE: Temperature is 97.5, pulse 93, blood pressure 107/66. She does not have any tenderness o r guarding in the right upper quadrant. She is mildly protuberant. She is icteric. Extremities cordell w edema, trace. LABORATORIES STUDIES: White count is 2.5, hemoglobin is 13, platelet count 39,000. Sodium 135, pota ssium 3.4, BUN and creatinine are 12 and 0.67, bilirubin is 13.7, AST and ALT have come down further to 85 and 42, total protein 5.7, albumin 2.3. ASSESSMENT: 1. Alcoholic hepatitis, improving. 2. Likely cirrhosis from alcohol and hepatitis C. 3. Cholelithiasis. This may or may not be symptomatic. Her right upper quadrant pain is resolved. Some of this may be related to antibiotics, although a lot of that may be improving alcoholic hepati tis. 4. Positive KRYSTA markers antimitochondrial antibody pending. RECOMMENDATIONS: 1. We would get alpha fetoprotein. 2. Advance diet to low fat. 3. If she tolerates that we can hold her IV fluids. 4. Continue multivitamin, thiamine, folate. For now, continue antibiotics.
[2017-07-05] MEDS: Famotidine 20 MG TAB PO SCH (20:55)
[2017-07-06] MEDS: Piperacillin/Tazobactam 4.5 GM in Sodium Chloride 0.9% 100 ML IVPB SCH ×4 (01:17→20:47)
[2017-07-06 05:32] LABS: ALT (SGPT) 37 U/L (8-55); AST (SGOT) 82 U/L (5-34); Albumin 2.2 g/dL (3.5-5.0); Alkaline Phosphatase 138 U/L (40-150); Anion Gap 9 mmol/L (10-20); BUN (Urea Nitrogen) 9 mg/dL (7.0-18.7); Bilirubin, Total 15.8 mg/dL (0.2-1.2); Calc. Creatinine Clearance 195 mL/min (70-130); Calcium 7.5 mg/dL (7.8-10.44); Carbon Dioxide 19 mmol/L (22-29); Chloride 110 mmol/L (98-107); Estimated GFR-MDRD Greater than 90; Globulin 3.3 g/dL (2.4-3.5); Glucose 75 mg/dL (70-105); Magnesium 1.4 mg/dL (1.6-2.6); Potassium 3.5 mmol/L (3.5-5.1); Protein, Total 5.5 g/dL (6.0-8.3); Sodium 134 mmol/L (136-145)
[2017-07-06 05:34] LABS: #Eosinphils 0.1 thou/uL (0.0-0.7); #Lymphocytes 0.8 thou/uL (1.20-3.40); #Monocytes 0.3 thou/uL (0.11-0.59); #Neutrophils 1.6 thou/uL (1.40-6.50); %Basophils 0.5 % (0.0-1.0); %Eosinophils 2.6 % (0.0-10.0); %Lymphocytes 29.5 % (21.0-51.0); %Monocytes 10.3 % (0.0-10.0); %Neutrophils 57.1 % (42.0-75.0); Mean Corpuscular HGB CONC 33.4 g/dL (32.0-36.0); Mean Platelet Volume 8.3 fL (7.4-10.4); Platelet Count 39 thou/uL (130-400); RBC Distribution Width 13.3 % (11.5-14.5); Red Blood Cell (RBC) Count 3.71 mill/uL (4.20-5.40); White Blood Cell (WBC) Count 2.8 thou/uL (4.8-10.8)
[2017-07-06] MEDS: Oxazepam 10 MG CAP PO SCH (05:59)
[2017-07-06] MEDS: Multivit, Therapeutic 1 TAB PO SCH (08:25)
[2017-07-06] MEDS: Famotidine 20 MG TAB PO SCH ×2 (08:26→20:47)
[2017-07-06] MEDS: Folic Acid 1 MG TAB PO SCH (08:26)
[2017-07-06] MEDS: Sodium Chloride 0.9% 1,000 ML IV SCH (13:01)
[2017-07-06 16:08] LABS: Mitochondrial (M2) Antibody 22.9 Units (0.0-20.0); Smooth Muscle Total ABS 19 Units (0-19)
--- NOTE | 2017-07-06 22:26 | PRG ---
DATE OF SERVICE: 07/06/2017 SUBJECTIVE: Mimi ate last night and did okay, although she tried to eat a peanut butter and jelly sa [facility] and had some nausea. She did eat ice cream with no pain. She seems sleepy today and her frie nd notes that as well. MEDICATIONS: She is on albuterol; Pepcid; folic acid; glucagon; morphine p.r.n. 2 mg, she has not ta lena that; albuterol inhaler; normal saline 100 an hour; Zosyn; folic acid; multivitamin; thiamine. S he is on Serax, which she received last night. OBJECTIVE: VITAL SIGNS: Temperature is 97, pulse 99, respirations 30 to 16, blood pressure 155/66. She remains icteric. ABDOMEN: Nontender right upper quadrant. She has some slight ascites probably with some fluid wave. EXTREMITIES: Reveal trace edema. LABORATORY STUDIES: Sodium is 134, potassium 3.5, BUN and creatinine 9 and 0.6, magnesium is 1.4, ca lcium is 7.5, bilirubin is 15, AST is 82 and ALT is 37. Protein 5.5, albumin 2.2. Alpha antitrypsin pending. Iron studies are high with a serum iron of 257. TIBC 254 and ferritin 500. White count 2. 8, hemoglobin 13 and platelet count 39,000. Serology notable for positive hepatitis C antibody. She had an RNA of 1010. ASSESSMENT: 1. Likely cirrhosis from alcohol abuse with high iron saturation. This could be from hemosiderosis from alcohol or could be hemochromatosis trait, we need to check for that. 2. Alcoholic hepatitis. 3. Cholelithiasis with possible cholecystitis, she has no signs of fever, no pain at this time. PLAN: 1. We would finish a course of antibiotics and discontinue that. 2. She is tolerating some diet, but fatty foods made her little bit sick, reinforce low fat diet to her. 3. She looks sleepy. We will go and stop the Serax. She has been here in the hospital now for 5 da ys. I think, she has probably run the course in terms of withdrawal issues. If she needs something for agitation, may be a lower dose benzodiazepine will be more appropriate. She seems pretty somnole nt. We will also check an ammonia level.
[2017-07-07] MEDS: Sodium Chloride 0.9% 1,000 ML IV SCH ×2 (00:46→08:52)
[2017-07-07] MEDS: Piperacillin/Tazobactam 4.5 GM in Sodium Chloride 0.9% 100 ML IVPB SCH ×4 (02:47→20:48)
[2017-07-07 08:43] LABS: ALT (SGPT) 38 U/L (8-55); AST (SGOT) 85 U/L (5-34); Albumin 2.2 g/dL (3.5-5.0); Alkaline Phosphatase 142 U/L (40-150); Anion Gap 10 mmol/L (10-20); BUN (Urea Nitrogen) 8 mg/dL (7.0-18.7); Bilirubin, Total 17.2 mg/dL (0.2-1.2); Calc. Creatinine Clearance 214 mL/min (70-130); Calcium 7.8 mg/dL (7.8-10.44); Carbon Dioxide 20 mmol/L (22-29); Chloride 109 mmol/L (98-107); Estimated GFR-MDRD Greater than 90; Globulin 3.4 g/dL (2.4-3.5); Glucose 81 mg/dL (70-105); Potassium 3.5 mmol/L (3.5-5.1); Protein, Total 5.6 g/dL (6.0-8.3); Sodium 135 mmol/L (136-145)
[2017-07-07] MEDS: Famotidine 20 MG TAB PO SCH ×2 (08:51→20:49)
[2017-07-07] MEDS: Multivit, Therapeutic 1 TAB PO SCH (08:51)
[2017-07-07] MEDS: Folic Acid 1 MG TAB PO SCH (08:51)
--- NOTE | 2017-07-07 12:13 | PRG ---
DATE OF SERVICE: 07/07/2017 SUBJECTIVE: Ms. Whitman has no abdominal pain today. She is tolerating a low fat diet. OBJECTIVE: VITAL SIGNS: Temperature 98.2, pulse 97, blood pressure 121/68. GENERAL: She is jaundiced. She is in no acute distress. She is awake and alert. HEENT: Eyes have scleral icterus. LUNGS: Clear to auscultation bilaterally. HEART: Regular rate and rhythm. ABDOMEN: Soft, nontender, nondistended. Bowel sounds are present. EXTREMITIES: No lower extremity edema. IMPRESSION: 1. Acute alcoholic hepatitis. Her bilirubin continues to climb. She does have up to 25%-50% mortal ity over the next month associated with this. 2. Likely underlying cirrhosis with elevated INR, low albumin, low platelet count, spider angiomas. She is decompensated now. She has no encephalopathy at this point and no evidence of significant as cites by physical exam. She will ultimately require endoscopy for varices screening in the future. 3. Chronic hepatitis C. 4. Elevated iron saturation with hemochromatosis gene pending. RECOMMENDATIONS: 1. Alcohol cessation. This was again discussed in detail with her. 2. It will be essential that she try to obtain some type of insurance or payment source given that h er liver disease is likely to progress and she may ultimately require a liver transplant. 3. Continue a 10-day course of antibiotics for the suspected acute cholecystitis. She is a very poo r operative candidate at this point. With antibiotics, she is now pain free and tolerating a solid d iet. 4. In addition, a low fat diet. She should maintain a low salt diet. 5. Her oxygen saturations noted to run in the 88%-91% range on room air. I will defer this to the [facility] service.
[2017-07-07 14:17] LABS: Alpha-1-Antitrypsin 138 mg/dL (90-200)
--- NOTE | 2017-07-07 16:27 | PDOC.PN ---
- Subjective Encounter Start Date: 07/08/17 Encounter Start Time: 09:55 Pt less sleep today after stopping anti-withdrawl meds. No f/C, carmen PO. GI wanting to keep until bili better. No signs if withdrawl, no N/V/D/C. 10 point ROS performed and neg for all systems except as per hPIPt much more awake toda,y carmen po, ate better, no F/C, no N/V/D/C, no CP or sOB, some prolonged expiratiory phase, high pitched qwheezing No cough, no sputum 10 point ROS performed and neg for all systems except as per hPI - Objective Resuscitation Status: Resuscitation Status FULL:Full Resuscitation MAR Reviewed: Yes Vital Signs & Weight: Vital Signs (12 hours) Temp Pulse Resp BP Pulse Ox 07/07/17 12:00 98.3 F 86 14 122/76 90 L 07/07/17 08:00 98.2 F 97 18 121/68 88 L 07/07/17 07:20 81 14 93 L Weight Weight 257 lb I&O: 07/06/17 07/07/17 07/08/17 06:59 06:59 06:59 Intake Total 5360 1140 Balance 5360 1140 Result Diagrams: 07/08/17 05:19 07/08/17 05:19 Radiology Reviewed by me: Yes EKG Reviewed by me: Yes Phys Exam - Physical Examination Constitutional: NAD HEENT: PERRLA, moist MMs, oral pharynx no lesions + icterus Neck: no nodes, no JVD, supple, full ROM Respiratory: no wheezing, no rales, no rhonchi, clear to auscultation bilateral Cardiovascular: RRR, no significant murmur, no rub Gastrointestinal: soft, non-tender, no distention, positive bowel sounds Musculoskeletal: no edema, pulses present Neurological: non-focal, normal sensation, moves all 4 limbs Lymphatic: no nodes Psychiatric: normal affect, A&O x 3 Skin: no rash, normal turgor, cap refill <2 seconds Deviation from normal: jaundiced Dx/Plan (1) Acute calculous cholecystitis Code(s): K80.00 - CALCULUS OF GALLBLADDER W ACUTE CHOLECYST W/O OBSTRUCTION Status: Acute Comment: abx, no surgery insetting of suspected acute alcoholic hepatitis. (2) Alcoholic hepatitis without ascites Code(s): K70.10 - ALCOHOLIC HEPATITIS WITHOUT ASCITES Status: Acute Comment : improving daily (3) Alcohol dependence Code(s): F10.20 - ALCOHOL DEPENDENCE, UNCOMPLICATED Status: Chronic Qualifiers: Substance use status: in withdrawal Comment: on meds, ASE scores (4) Chronic hepatitis Code(s): K73.9 - CHRONIC HEPATITIS, UNSPECIFIED Status: Chronic Comment: total Ab positive, VL only 1000. will need Rx at some point with harvoni (5) Cirrhosis Code(s): K74.60 - UNSPECIFIED CIRRHOSIS OF LIVER Status: Chronic Qualifiers: Hepatic cirrhosis type: alcoholic cirrhosis Ascites presence: without ascites Qualified Code(s): K70.30 - Alcoholic cirrhosis of liver without ascites Comment: probably due to chronic hep C also (6) Coagulopathy Status: Chronic Comment: due to cirrhosis (7) Thrombocytopenia Code(s): D69.6 - THROMBOCYTOPENIA, UNSPECIFIED Status: Chronic Comment: due to cirrosis-induced portal hypertension and sequestration - Plan cont current plan of care, continue antibiotics * . home when okay with GI
--- NOTE | 2017-07-07 16:27 | PDOC.PN ---
- Subjective Encounter Start Date: 07/06/17 Encounter Start Time: 16:40 Pt more sleepy today, no F/c, no n/V/D/C. not as goo dpo intake today. no abd pain, no new complaints. 10 point ROS performed and neg for all systems except as per hPI - Objective Resuscitation Status: Resuscitation Status FULL:Full Resuscitation MAR Reviewed: Yes Vital Signs & Weight: Vital Signs (12 hours) Temp Pulse Resp BP Pulse Ox 07/07/17 12:00 98.3 F 86 14 122/76 90 L 07/07/17 08:00 98.2 F 97 18 121/68 88 L 07/07/17 07:20 81 14 93 L Weight Weight 257 lb I&O: 07/06/17 07/07/17 07/08/17 06:59 06:59 06:59 Intake Total 5360 1140 Balance 5360 1140 Result Diagrams: 07/08/17 05:19 07/08/17 05:19 Phys Exam - Physical Examination Constitutional: NAD HEENT: PERRLA, moist MMs, oral pharynx no lesions + icterus Neck: no nodes, no JVD, supple, full ROM Respiratory: no wheezing, no rales, no rhonchi, clear to auscultation bilateral Cardiovascular: RRR, no significant murmur, no rub Gastrointestinal: soft, non-tender, no distention, positive bowel sounds Musculoskeletal: no edema, pulses present Neurological: non-focal, normal sensation, moves all 4 limbs Lymphatic: no nodes Psychiatric: normal affect, A&O x 3 Skin: no rash, normal turgor, cap refill <2 seconds Deviation from normal: + jaundice Dx/Plan (1) Acute calculous cholecystitis Code(s): K80.00 - CALCULUS OF GALLBLADDER W ACUTE CHOLECYST W/O OBSTRUCTION Status: Acute Comment: abx, no surgery insetting of suspected acute alcoholic hepatitis. (2) Alcoholic hepatitis without ascites Code(s): K70.10 - ALCOHOLIC HEPATITIS WITHOUT ASCITES Status: Acute Comment : improving daily (3) Chronic hepatitis Code(s): K73.9 - CHRONIC HEPATITIS, UNSPECIFIED Status: Chronic Comment: total Ab positive, VL only 1000. will need Rx at some point with harvoni (4) Cirrhosis Code(s): K74.60 - UNSPECIFIED CIRRHOSIS OF LIVER Status: Chronic Qualifiers: Hepatic cirrhosis type: alcoholic cirrhosis Ascites presence: without ascites Qualified Code(s): K70.30 - Alcoholic cirrhosis of liver without ascites Comment: probably due to chronic hep C also (5) Alcohol dependence Code(s): F10.20 - ALCOHOL DEPENDENCE, UNCOMPLICATED Status: Chronic Qualifiers: Substance use status: in withdrawal Comment: on meds, ASE scores (6) Coagulopathy Status: Chronic Comment: due to cirrhosis (7) Thrombocytopenia Code(s): D69.6 - THROMBOCYTOPENIA, UNSPECIFIED Status: Chronic Comment: due to cirrosis-induced portal hypertension and sequestration - Plan * . Pt somnolent from meds for withdrawl prevention, will stop
[2017-07-08] MEDS: Piperacillin/Tazobactam 4.5 GM in Sodium Chloride 0.9% 100 ML IVPB SCH ×4 (01:32→20:46)
[2017-07-08 06:08] LABS: ALT (SGPT) 32 U/L (8-55); AST (SGOT) 82 U/L (5-34); Albumin 2.1 g/dL (3.5-5.0); Alkaline Phosphatase 130 U/L (40-150); Anion Gap 7 mmol/L (10-20); BUN (Urea Nitrogen) 7 mg/dL (7.0-18.7); Bilirubin, Total 18.7 mg/dL (0.2-1.2); Calc. Creatinine Clearance 189 mL/min (70-130); Calcium 7.8 mg/dL (7.8-10.44); Carbon Dioxide 23 mmol/L (22-29); Chloride 108 mmol/L (98-107); Estimated GFR-MDRD Greater than 90; Globulin 3.4 g/dL (2.4-3.5); Glucose 93 mg/dL (70-105); Magnesium 1.5 mg/dL (1.6-2.6); Potassium 3.6 mmol/L (3.5-5.1); Protein, Total 5.5 g/dL (6.0-8.3); Sodium 134 mmol/L (136-145)
[2017-07-08 07:53] LABS: #Eosinphils 0.1 thou/uL (0.0-0.7); #Lymphocytes 0.8 thou/uL (1.20-3.40); #Monocytes 0.3 thou/uL (0.11-0.59); #Neutrophils 1.6 thou/uL (1.40-6.50); %Basophils 0.4 % (0.0-1.0); %Eosinophils 3.8 % (0.0-10.0); %Lymphocytes 27.3 % (21.0-51.0); %Monocytes 12.2 % (0.0-10.0); %Neutrophils 56.2 % (42.0-75.0); MDiff Complete? YES; Macrocytosis SLIGHT = 6-15 cells (100X) (0-5/hpf); Mean Corpuscular Hemoglobin 34.7 pg (27.0-31.0); Mean Platelet Volume 8.5 fL (7.4-10.4); PLT Morphology Comment Appears Decreased; Platelet Count 44 thou/uL (130-400); RBC Distribution Width 13.6 % (11.5-14.5); Red Blood Cell (RBC) Count 3.74 mill/uL (4.20-5.40); White Blood Cell (WBC) Count 2.8 thou/uL (4.8-10.8)
[2017-07-08] MEDS: Multivit, Therapeutic 1 TAB PO SCH (09:17)
[2017-07-08] MEDS: Folic Acid 1 MG TAB PO SCH (09:17)
[2017-07-08] MEDS: Famotidine 20 MG TAB PO SCH ×2 (09:17→20:46)
--- NOTE | 2017-07-08 15:21 | RAD ---
TWO VIEW CHEST: History: Dyspnea. FINDINGS: Lung turk are clear. Heart and mediastinum unremarkable. Deformity of the left clavicle from old fr acture is noted. IMPRESSION: No acute abnormality. POS: [facility]
--- NOTE | 2017-07-08 16:25 | PDOC.PN ---
- Subjective Encounter Start Date: 07/07/17 Encounter Start Time: 11:40 better today, no acute events, no compalints, no new requestas. Bili continues to clinb, no itching. carmen po 10 point ROS performed and neg for all systems except as above - Objective Resuscitation Status: Resuscitation Status FULL:Full Resuscitation Vital Signs & Weight: Vital Signs (12 hours) Temp Pulse Resp BP BP Pulse Ox 07/08/17 16:21 97.7 F 88 14 124/79 94 L 07/08/17 16:17 95 07/08/17 14:05 93 L 07/08/17 14:00 87 L 07/08/17 12:20 98.6 F 85 32 H 115/72 94 L 07/08/17 08:10 98.5 F 85 16 145/73 H 91 L Weight Weight 257 lb I&O: 07/07/17 07/08/17 07/09/17 06:59 06:59 06:59 Intake Total 2039 Balance 2039 Result Diagrams: 07/08/17 05:19 07/08/17 05:19 Phys Exam - Physical Examination Constitutional: NAD HEENT: PERRLA, moist MMs, oral pharynx no lesions +icterus Neck: no nodes, no JVD, supple, full ROM Respiratory: no wheezing, no rales, no rhonchi, clear to auscultation bilateral Cardiovascular: RRR, no significant murmur, no rub Gastrointestinal: soft, non-tender, no distention, positive bowel sounds Musculoskeletal: no edema, pulses present Neurological: non-focal, normal sensation, moves all 4 limbs Lymphatic: no nodes Psychiatric: normal affect, A&O x 3 Skin: no rash, normal turgor, cap refill <2 seconds Deviation from normal: jaundiced Dx/Plan (1) Acute calculous cholecystitis Code(s): K80.00 - CALCULUS OF GALLBLADDER W ACUTE CHOLECYST W/O OBSTRUCTION Status: Acute Comment: abx, no surgery insetting of suspected acute alcoholic hepatitis. (2) Alcoholic hepatitis without ascites Code(s): K70.10 - ALCOHOLIC HEPATITIS WITHOUT ASCITES Status: Acute Comment : improving daily (3) Alcohol dependence Code(s): F10.20 - ALCOHOL DEPENDENCE, UNCOMPLICATED Status: Chronic Qualifiers: Substance use status: in withdrawal Comment: on meds, ASE scores (4) Chronic hepatitis Code(s): K73.9 - CHRONIC HEPATITIS, UNSPECIFIED Status: Chronic Comment: total Ab positive, VL only 1000. will need Rx at some point with carmen (5) Cirrhosis Code(s): K74.60 - UNSPECIFIED CIRRHOSIS OF LIVER Status: Chronic Qualifiers: Hepatic cirrhosis type: alcoholic cirrhosis Ascites presence: without ascites Qualified Code(s): K70.30 - Alcoholic cirrhosis of liver without ascites Comment: probably due to chronic hep C also (6) Coagulopathy Status: Chronic Comment: due to cirrhosis (7) Thrombocytopenia Code(s): D69.6 - THROMBOCYTOPENIA, UNSPECIFIED Status: Chronic Comment: due to cirrosis-induced portal hypertension and sequestration - Plan * .
--- NOTE | 2017-07-08 18:44 | PRG ---
DATE OF SERVICE: 07/08/2017 SUBJECTIVE: Ms. Whitman has no acute complaints today. She is awake and alert. She is ambulating a round the room without oxygen, doing well. OBJECTIVE: VITAL SIGNS: Temperature 97.7, pulse 88, oxygen saturations 94% on room air, blood pressure 124/79. GENERAL: She is in no acute distress. She is jaundiced, alert and oriented x3. LUNGS: Clear to auscultation bilaterally. HEART: Regular rate and rhythm. ABDOMEN: Soft and nontender. Bowel sounds are present. EXTREMITIES: 1+ pitting lower extremity edema. IMPRESSION: 1. Acute alcoholic hepatitis. 2. Likely underlying chronic cirrhosis, which is decompensated with acute alcoholic hepatitis. 3. Chronic hepatitis C. 4. Acute cholecystitis, clinically improved with antibiotics. 5. Elevated iron saturation with hemochromatosis gene pending. RECOMMENDATIONS: 1. Alcohol cessation. 2. Complete a course of antibiotics for the suspected acute cholecystitis. 3. Follow up in GI clinic with the Physician Geoduck Diver in a week to recheck her liver tests and INR. 4. She should be ready to discharge home tomorrow morning. She is okay for discharge from [facility]. 5. Low salt and low fat diet. 6. She again was advised follow up with a social work professor regarding plan to work on obtaining health i nsurance. She can do this in the morning.
[2017-07-09] MEDS: Piperacillin/Tazobactam 4.5 GM in Sodium Chloride 0.9% 100 ML IVPB SCH (01:40)
[2017-07-09 04:46] LABS: INR-International Normal Ratio 2.1; Prothrombin Time 24.1 SEC (12.0-14.7)
[2017-07-09 04:50] LABS: #Eosinphils 0.1 thou/uL (0.0-0.7); #Monocytes 0.4 thou/uL (0.11-0.59); #Neutrophils 1.7 thou/uL (1.40-6.50); %Basophils 0.8 % (0.0-1.0); %Eosinophils 3.8 % (0.0-10.0); %Lymphocytes 30.6 % (21.0-51.0); %Monocytes 11.7 % (0.0-10.0); %Neutrophils 53.1 % (42.0-75.0); Hemoglobin 13.4 g/dL (12.0-16.0); Mean Corpuscular HGB CONC 32.5 g/dL (32.0-36.0); Mean Corpuscular Hemoglobin 35.2 pg (27.0-31.0); Mean Platelet Volume 7.6 fL (7.4-10.4); Platelet Count 52 thou/uL (130-400); RBC Distribution Width 13.6 % (11.5-14.5); Red Blood Cell (RBC) Count 3.81 mill/uL (4.20-5.40); White Blood Cell (WBC) Count 3.1 thou/uL (4.8-10.8)
[2017-07-09 04:51] LABS: ALT (SGPT) 33 U/L (8-55); AST (SGOT) 83 U/L (5-34); Albumin 2.2 g/dL (3.5-5.0); Alkaline Phosphatase 144 U/L (40-150); Anion Gap 9 mmol/L (10-20); BUN (Urea Nitrogen) 9 mg/dL (7.0-18.7); Bilirubin, Total 21.2 mg/dL (0.2-1.2); Calc. Creatinine Clearance 174 mL/min (70-130); Carbon Dioxide 23 mmol/L (22-29); Chloride 106 mmol/L (98-107); Estimated GFR-MDRD 84; Globulin 3.7 g/dL (2.4-3.5); Glucose 84 mg/dL (70-105); Potassium 3.4 mmol/L (3.5-5.1); Protein, Total 5.9 g/dL (6.0-8.3); Sodium 135 mmol/L (136-145)
[2017-07-09] MEDS ORDERED: Phytonadione 10 MG/ML AMP SC SCH (06:15)
--- NOTE | 2017-07-09 06:54 | PRG ---
DATE OF SERVICE: 07/09/2017 SUBJECTIVE: Ms. Whitman has no acute complaints. OBJECTIVE: VITAL SIGNS: Temperature 97.7, pulse 85, blood pressure 136/76. Her oxygen saturation is 90% on leann m air. GENERAL: She is in no acute distress, alert and oriented x3. She is jaundiced. HEENT: Her sclerae are icteric. LUNGS: Clear to auscultation bilaterally. HEART: Regular rate and rhythm. ABDOMEN: Soft, nontender, nondistended. Bowel sounds are present. EXTREMITIES: 1+ pitting lower extremity edema. IMPRESSION: 1. Severe alcoholic hepatitis. Her INR is up to 2.1 today. Her bilirubin is up to 21.2. I would h old steroids in light of the suspected acute cholecystitis. Treatment now is supportive and with alc ohol cessation. She overall symptomatically is doing well and should be able to discharge home today with follow up in GI Clinic in a week to recheck her liver tests. 2. Likely underlying cirrhosis with decompensation. 3. Chronic hepatitis C. 4. Acute cholecystitis, clinically improved with antibiotics. RECOMMENDATIONS: 1. Alcohol abstinence. 2. Complete a 10-day course of antibiotics for the acute cholecystitis. 3. Low salt and low fat diet. 4. Follow up in GI Clinic in a week to recheck her liver tests. 5. Again, her oxygen saturation is noted to run on the low side and this is deferred to the primary service.
[2017-07-09] MEDS: Multivit, Therapeutic 1 TAB PO SCH (08:38)
[2017-07-09] MEDS: Folic Acid 1 MG TAB PO SCH (08:38)
[2017-07-09] MEDS: Famotidine 20 MG TAB PO SCH (08:38)
[2017-07-09 12:05] VITALS: BP 138/86; TEMP 97.7
== END 2017-07-09 13:05 | disposition home or self-care (01) | DRG 433 ==
LOC: ERS 14:12 → SJJU 16:57
PROVIDERS: ADMIT Surgery; ATTEND Internal Medicine Infectious Disease
DX: K70.10 Alcoholic hepatitis without ascites (principal); K80.00 Calculus of gallbladder with acute cholecystitis without obstruction; D69.6 Thrombocytopenia, unspecified; B18.2 Chronic viral hepatitis C; F10.20 Alcohol dependence, uncomplicated; Z87.891 Personal history of nicotine dependence
CPT/HCPCS: 36415; 36416; 71046; 74181; 76705; 80048; 80053; 80074; 80076; 81256; 82103; 82104; 82105; 82140; 82728; 83516; 83540; 83550; 83690; 83735; 84100; 85025; 85610; 86038; 86225; 86235; 86704; 86706; 86708; 86850; 86900; 86901; 87522; 94640; 96374; J0131; J1885; J2270; J2543; J3411; J3430; J7050; J7620; Q0162; S0028

== ENCOUNTER 2017-07-17 16:53 | Inpatient (IN) | payer SELFPAY ==
[~2017-07-17 16:53] MED LIST: Heparin 1,000 UNITS/ML VIAL ONE
[2017-07-17 18:08] LABS: #Lymphocytes 0.9 thou/uL (1.20-3.40); #Monocytes 0.8 thou/uL (0.11-0.59); #Neutrophils 3.9 thou/uL (1.40-6.50); %Basophils 0.4 % (0.0-1.0); %Eosinophils 0.8 % (0.0-10.0); %Lymphocytes 15.6 % (21.0-51.0); %Monocytes 14.6 % (0.0-10.0); %Neutrophils 68.7 % (42.0-75.0); Hemoglobin 15.3 g/dL (12.0-16.0); Mean Corpuscular HGB CONC 32.1 g/dL (32.0-36.0); Mean Corpuscular Hemoglobin 34.1 pg (27.0-31.0); Mean Platelet Volume 7.9 fL (7.4-10.4); Platelet Count 74 thou/uL (130-400); RBC Distribution Width 13.6 % (11.5-14.5); Red Blood Cell (RBC) Count 4.49 mill/uL (4.20-5.40); White Blood Cell (WBC) Count 5.7 thou/uL (4.8-10.8)
[2017-07-17 18:14] LABS: INR-International Normal Ratio 2.4; Prothrombin Time 27.2 SEC (12.0-14.7)
[2017-07-17 18:25] LABS: ALT (SGPT) 66 U/L (8-55); AST (SGOT) 216 U/L (5-34); Albumin 2.4 g/dL (3.5-5.0); Alkaline Phosphatase 187 U/L (40-150); Anion Gap 11 mmol/L (10-20); BUN (Urea Nitrogen) 25 mg/dL (7.0-18.7); Calc. Creatinine Clearance 72 mL/min (70-130); Carbon Dioxide 24 mmol/L (22-29); Chloride 97 mmol/L (98-107); Estimated GFR-MDRD 28; Globulin 4.5 g/dL (2.4-3.5); Glucose 83 mg/dL (70-105); Potassium 3.5 mmol/L (3.5-5.1); Protein, Total 6.9 g/dL (6.0-8.3); Sodium 128 mmol/L (136-145)
[2017-07-17 18:34] LABS: Bilirubin, Total 26.6 mg/dL (0.2-1.2)
--- NOTE | 2017-07-17 20:51 | CON ---
DATE OF CONSULTATION: 07/17/2017 NEPHROLOGY CONSULTATION REASON FOR CONSULTATION: Abnormal renal function and decreasing urine output. HISTORY OF PRESENT ILLNESS: This is a 46-year-old female with liver failure and jaundice presented t o the hospital after being noted that she had a normal renal function. Lab tests are not available. Her last reported creatinine on 07/09/2017 was 0.75. The patient has developed significant ascites. The patient at this time denies any nausea, vomiting or chest pain; only complains of abdominal ful lness. PAST MEDICAL HISTORY: Significant for liver failure, history of remote fractures. No other illnesse s or surgeries. Also significant for chronic alcohol use, history of cirrhosis, questionable history of hepatitis C, mixed connective tissue disorder. PAST SURGICAL HISTORY: Negative. HOME MEDICATIONS: Reviewed. ALLERGIES: Reviewed. SOCIAL HISTORY: No alcohol or drug use. FAMILY HISTORY: Negative for ESRD. REVIEW OF SYSTEMS: A 15-point review of systems was performed and was negative except for positives noted above. General: Weakness. Head: Headache. Neck: No swelling or lumps. Nose: No epistaxi s or discharge. Eyes: No diplopia or pain. Respiratory: Dyspnea. Cardiovascular: Chest pain. G astrointestinal: Nausea. /ADMISSION DISCHARGE RN: Hematuria. Musculoskeletal: No joint pain. Neuropsychiatic sys tems: No suicidal ideation. No ideation. SKIN: Denies any rash or ulcer. Constitutional: No fev er or chills. PHYSICAL EXAMINATION: GENERAL: Patient is awake, alert. VITAL SIGNS: Afebrile, pulse 79, breathing 16, blood pressure 117/77. GENERAL APPEARANCE AND MENTAL STATUS: Fair. HEAD/NECK: Normocephalic. Atraumatic. EYES: EOMI. No deformity. EARS: Clear. No ulcers. NOSE: Intact. No lesions. MOUTH: Clear. No discharge. THROAT: Clear. No exudate. LUNGS: Clear. No crackles. CARDIAC: S1, S2. No rub. ABDOMEN: Benign. BS+. GENITALIA/RECTUM: Gomez absent. BACK/EXTREMITIES: Lower extremities have 2+ edema. NEUROLOGICAL: Alert and motor intact. SKIN: Shows jaundice. LYMPHATICS: Edema- Ulcer. LABORATORY DATA: Pending. ASSESSMENT AND RECOMMENDATIONS: 1. Acute kidney injury with chronic kidney disease due to hepatorenal syndrome versus other etiology . Awaiting labs. 2. Anemia, stable. 3. Medications based on glomerular filtration rate are appropriate.
--- NOTE | 2017-07-17 22:31 | HP ---
DATE OF ADMISSION: 07/17/2017 ADMITTING PHYSICIAN: Dr. Shiv Graham. PRIMARY CARE PHYSICIAN: Dr. Orona, Gastroenterology. CHIEF COMPLAINT: Abdominal pain, acute kidney injury. HISTORY OF PRESENT ILLNESS: The patient is a 46-year-old female with history of alcoholic hepatitis. She was being assessed in clinic this morning by Dr. Posada. The patient had complaints of right upp er quadrant pain and epigastric pain. Dr. Posada ordered blood work and found the patient to have a ma rkedly elevated creatinine above her baseline. She also had a markedly elevated total bilirubin. Dr William Posada sent the patient for admission for further renal workup. During my interview, the patient den ies chest pain, increased shortness of breath, nausea, vomiting, diarrhea or constipation. REVIEW OF SYSTEMS: The following complete review of systems was negative, unless otherwise mentioned in the HPI or below: Constitutional: Weight loss or gain, sense of well-being, ability to conduct usual activities, exerc ise tolerance. Skin/Breast: Rash, itching, changes in hair growth or loss, nail changes, breast lumps, tenderness, swelling, nipple discharge. Eyes: Vision, double vision, tearing, blind spots, pain. ENT/Mouth: Headaches (location, time of onset, duration, precipitating factors), vertigo, lightheade dness, injury. Vision, double vision, tearing, blind spots, pain, nose bleeding, colds, obstruction, discharge, dental difficulties, gingival bleeding, dentures, neck stiffness, pain, tenderness, masses in thyroid or other areas. Cardiovascular: Precordial pain, substernal distress, palpitations, syncope, dyspnea on exertion, or thopnea, nocturnal paroxysmal dyspnea, edema, cyanosis, hypertension, heart murmurs, varicosities, ph lebitis, claudication. Respiratory: Pain, shortness of breath, wheezing, stridor, cough, hemoptysis, fever or night sweats. Gastrointestinal: Poor appetite, dysphagia, indigestion, abdominal pain, heartburn, eructation, naus ea, vomiting, hematemesis, jaundice, constipation, or diarrhea, abnormal stools (thu-colored, tarry, bloody, greasy, foul smelling), flatulence, hemorrhoids, recent changes in bowel habits. Genitourinary: Urgency, frequency, dysuria, nocturia, hematuria, polyuria, oliguria, unusual (or nela nge in) color of urine, stones, hesitancy, change in size of stream, dribbling, acute retention or in continence, libido, potency. Musculoskeletal: Pain, swelling, redness or heat of muscles or joints, limitation, of motion, muscul ar weakness, atrophy, cramps. Neurologic/Psychiatric: Convulsions, paralyses, tremor, incoordination, paresthesias, difficulties w ith memory of speech, sensory or motor disturbances, or muscular coordination (ataxia, tremor), emoti onal problems, anxiety, depression, previous psychiatric care, unusual perceptions, hallucinations. Allergy/Immunologic: Skin rash, anemia, bleeding tendency, polydipsia, polyuria, intolerance to heat or cold. PAST MEDICAL HISTORY: Significant for alcoholic hepatitis. PAST SURGICAL HISTORY: None. FAMILY HISTORY: Her mother passed at 62 with heart disease. Her father passed at 52 of colon cancer . She denies family history of diabetes. 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 Drinks 6-7 beers per day. Denies cigarett es or illicit drugs, but has inhaled secondhand smoke due to work. DRUG ALLERGIES: No known drug allergies. HOME MEDICATIONS: Include none. PHYSICAL EXAMINATION: VITAL SIGNS: Temperature of 97.9, pulse 75, respirations 16, satting 93% on room air with a blood pr essure of 116/76. GENERAL: She is in no acute distress. HEAD: Normocephalic, atraumatic. EYES: Icteric sclerae are present. Extraocular muscles are intact. PERRL. EAR, NOSE, AND THROAT: External ear and nasal nares are clear. NECK: Supple, full range of motion. CARDIAC: Regular rate and rhythm with a grade 2/6 systolic ejection murmur. LUNGS: Clear to auscultation bilaterally, no rhonchi, no wheezing. ABDOMEN: Distended, jaundice, slight tenderness in the right upper quadrant. EXTREMITIES: No clubbing, cyanosis. There is 1+ edema bilaterally. NEUROLOGIC: Cranial nerves II-XII are grossly intact. She is alert and oriented x3. LABORATORY AND IMAGES: CBC shows a white count of 5.7, hemoglobin 15.3, hematocrit 47.7, platelets 7 4. PT 27.2, INR 2.4. Sodium 128, potassium 3.5, chloride 97, CO2 of 24, BUN 25, creatinine 1.94, gl ucose 83, total bilirubin 26.6, AST 216, ALT 66, alkaline phosphatase 187, albumin 2.4. ASSESSMENT: 1. Acute kidney injury. 2. Alcoholic hepatitis. 3. Hyperbilirubinemia. 4. Thrombocytopenia. PLAN: The patient has been admitted to the medical or Nephrology and Gastroenterology consults are i n place. The patient will be assessed by the aforementioned services in an effort to prevent hepator enal syndrome. We will make treatment decisions based on input from the subspecialist. Although the patient is thrombocytopenic, we will place sequential compression devices for deep venous thrombosis prophylaxis.
[2017-07-18] MEDS: Ondansetron HCl/PF 4 MG/2 ML Vial IVP PRN ×2 (00:50→16:00)
[2017-07-18 05:46] LABS: #Eosinphils 0.1 thou/uL (0.0-0.7); #Lymphocytes 1.2 thou/uL (1.20-3.40); #Monocytes 0.9 thou/uL (0.11-0.59); #Neutrophils 4.5 thou/uL (1.40-6.50); %Basophils 0.1 % (0.0-1.0); %Eosinophils 1.2 % (0.0-10.0); %Lymphocytes 17.5 % (21.0-51.0); %Monocytes 13.1 % (0.0-10.0); %Neutrophils 68.1 % (42.0-75.0); Hemoglobin 14.2 g/dL (12.0-16.0); Mean Corpuscular HGB CONC 33.7 g/dL (32.0-36.0); Mean Corpuscular Hemoglobin 34.4 pg (27.0-31.0); Platelet Count 63 thou/uL (130-400); RBC Distribution Width 13.5 % (11.5-14.5); Red Blood Cell (RBC) Count 4.14 mill/uL (4.20-5.40); White Blood Cell (WBC) Count 6.6 thou/uL (4.8-10.8)
[2017-07-18 06:02] LABS: Anion Gap 9 mmol/L (10-20); BUN (Urea Nitrogen) 28 mg/dL (7.0-18.7); Calc. Creatinine Clearance 71 mL/min (70-130); Calcium 8.5 mg/dL (7.8-10.44); Carbon Dioxide 23 mmol/L (22-29); Chloride 97 mmol/L (98-107); Estimated GFR-MDRD 28; Glucose 94 mg/dL (70-105); Sodium 126 mmol/L (136-145)
--- NOTE | 2017-07-18 08:15 | PDOC.PN ---
- Subjective Encounter Start Date: 07/18/17 Encounter Start Time: 08:14 Subjective: I HAVEN'T SLEPT IN 3 DAYS - Objective Resuscitation Status: Resuscitation Status FULL:Full Resuscitation MAR Reviewed: Yes Vital Signs & Weight: Vital Signs (12 hours) Temp Pulse Resp BP Pulse Ox 07/18/17 04:00 97.6 F 73 18 102/61 92 L 07/18/17 00:45 97.6 F 75 20 107/65 92 L Weight Weight 273 lb 3.2 oz I&O: 07/17/17 07/18/17 07/19/17 06:59 06:59 06:59 Intake Total 240 Balance 240 Result Diagrams: 07/18/17 05:20 07/18/17 05:20 Phys Exam - Physical Examination Constitutional: NAD HEENT: PERRLA, moist MMs ICTERUS Neck: supple, full ROM Respiratory: no rhonchi Cardiovascular: RRR (S) MOISES DISTENDED, TENDER Musculoskeletal: edema present Neurological: non-focal, moves all 4 limbs Deviation from normal: JAUNDICE Dx/Plan (1) TIMI (acute kidney injury) Code(s): N17.9 - ACUTE KIDNEY FAILURE, UNSPECIFIED Status: Acute (2) Alcoholic hepatitis without ascites Code(s): K70.10 - ALCOHOLIC HEPATITIS WITHOUT ASCITES Status: Acute Comment : improving daily (3) Chronic hepatitis Code(s): K73.9 - CHRONIC HEPATITIS, UNSPECIFIED Status: Chronic Comment: total Ab positive, VL only 1000. will need Rx at some point with carmen (4) Cirrhosis Code(s): K74.60 - UNSPECIFIED CIRRHOSIS OF LIVER Status: Chronic Qualifiers: Comment: probably due to chronic hep C also (5) Coagulopathy Status: Chronic Comment: due to cirrhosis (6) Thrombocytopenia Code(s): D69.6 - THROMBOCYTOPENIA, UNSPECIFIED Status: Chronic Comment: due to cirrosis-induced portal hypertension and sequestration - Plan cont current plan of care, plan discussed w/ family AWAITING FURTHER RECCS FROM GI [facility]. POSSIBLE TRANSFER TO -: [facility] * .
[2017-07-18] MEDS ORDERED: diphenhydrAMINE 12.5 MG in Sodium Chloride 0.9% 50 ML IVPB PRN (08:18)
[2017-07-18] MEDS ORDERED: Sodium Chloride 0.9% 1,000 ML IV SCH (09:30)
--- NOTE | 2017-07-18 10:59 | PRG ---
DATE OF SERVICE: 07/18/2017 SUBJECTIVE: This is a 46-year-old female being seen for acute kidney injury. The patient denies any nausea, vomiting or chest pain. PHYSICAL EXAMINATION: GENERAL: Patient is awake, alert. VITAL SIGNS: Afebrile, pulse 75, breathing 16, blood pressure 105/60. OBJECTIVE: See above. Awake, alert, in no acute distress. GENERAL APPEARANCE AND MENTAL STATUS: Fair. HEAD/NECK: Normocephalic. Atraumatic. EYES: EOMI. No deformity. EARS: Clear. No ulcers. NOSE: Intact. No lesions. MOUTH: Clear. No discharge. THROAT: Clear. No exudate. LUNGS: Clear. No crackles. CARDIAC: S1, S2. No rub. ABDOMEN: Benign. BS+. GENITALIA/RECTUM: Gomez absent. BACK/EXTREMITIES: Lower extremities have edema. NEUROLOGICAL: Alert and motor intact. SKIN: Rash- Bruise- LYMPHATICS: Edema- Ulcer- LABORATORY: Creatinine 1.95, sodium 126, potassium 3. ASSESSMENT AND RECOMMENDATIONS: 1. Acute kidney injury with chronic kidney disease, most likely because of hepatorenal syndrome. I will start gentle hydration. 2. Hypokalemia. Recommend 40 mEq of potassium by mouth. 3. Alcoholic hepatitis. 4. Hepatitis C. Overall, prognosis is very poor.
[2017-07-18 16:31] LABS: Anion Gap 10 mmol/L (10-20); BUN (Urea Nitrogen) 30 mg/dL (7.0-18.7); Calc. Creatinine Clearance 71 mL/min (70-130); Calcium 8.3 mg/dL (7.8-10.44); Carbon Dioxide 21 mmol/L (22-29); Chloride 97 mmol/L (98-107); Estimated GFR-MDRD 28; Glucose 111 mg/dL (70-105); Sodium 125 mmol/L (136-145)
[2017-07-18] MEDS ORDERED: Phytonadione 10 MG/ML AMP PO SCH (17:15)
[2017-07-18] MEDS ORDERED: Phytonadione 10 MG/ML AMP SC SCH (17:15)
--- NOTE | 2017-07-18 19:30 | CON ---
DATE OF CONSULTATION: 07/18/2017 HISTORY OF PRESENT ILLNESS: Patient is a 46-year-old female, who recently diagnosed by Dr. Orona with alcoholic hepatitis. She is an active alcoholic until approximately 3 weeks ago and stop ped drinking at that time. She reports she drank approximately 8 beers per day. Since that time, joseline patel has complained of some right-sided abdominal pain, no nausea, or vomiting. She has not been starte d on any steroids during her last hospitalization. She had imaging of the liver, which include abdom inal ultrasound, which showed evidence of cholelithiasis, mild prominence of the common duct, increas ed echogenicity of the hepatic parenchyma. MRI was performed of the liver showed cholelithiasis with a distended gallbladder, mild gallbladder wall thickening, trace pericholecystic fluid, limited visu alization of the biliary tree is noted. Chest x-ray was normal. The patient reportedly had creatini ne elevated and this is the reason she was hospitalized. PAST MEDICAL HISTORY: Significant for alcoholic hepatitis. PAST SURGICAL HISTORY: Negative. ALLERGIES: No known medical allergies. FAMILY HISTORY: Negative for liver disease. Her father had colorectal cancer. REVIEW OF SYSTEMS: Ten-systems were reviewed and were negative except for above. PHYSICAL EXAMINATION: GENERAL: Shows a deeply jaundiced white female and somewhat overweight, in no acute distress. HEENT: Unremarkable except for scleral icterus. NECK: Supple. CHEST: Clear. CARDIOVASCULAR: Regular rate and rhythm. ABDOMEN: Soft, tender in the right upper quadrant with some mild prominence of the liver noted. It is difficult to assess liver edge as she is obese. EXTREMITIES: Shows 1+ pitting edema bilaterally. LABORATORY DATA: Shows white blood cell count of 6.6, hemoglobin 14.2 with hematocrit of 42.2, MCV i s 102, platelet count is 63,000. PT is 27.2 with an INR of 2.4. Chemistries shows sodium 125, potas sium 3.0, chloride 97, CO2 of 21, BUN 30, creatinine 1.95, glucose 111, total bilirubin of 26, AST of 216, ALT of 66, alkaline phosphatase of 187. Previous KRYSTA was shown a positive KRYSTA. Viral showed r eflux, hepatitis C and RNA level of 1010. Positive hepatitis A antibody is noted as well. Hemochrom atosis screen was negative. ASSESSMENT: 1. Alcoholic hepatitis. 2. Coagulopathy. 3. Right upper quadrant pain secondary to alcoholic hepatitis. 4. Elevated creatinine - probably secondary to dehydration. RECOMMENDATIONS: 1. IV fluids. 2. Begin steroids for alcoholic hepatitis. 3. Urinalysis.
[2017-07-18 21:56] LABS: Bilirubin Large (Negative); Blood, Urine Moderate (Negative); Clarity CLOUDY (Clear); Glucose, Urine (Dipstick) Negative (Negative); Leukocyte Small (Negative); Nitrite Negative (Negative); Protein, Urine (Dipstick) Negative (Neg-Trace); Specific Gravity, Urine 1.017 (1.002-1.036); Urobilinogen 0.2 mg/dL (0.2-1.0)
[2017-07-18 22:01] LABS: Bacteria/HPF None Seen HPF (None Seen); Hyaline Casts/LPF 4-6 HYALINE CAST LPF (0-3 Hyaline); Pathc Cast-AUWi Flag 1.21 (0-2.49); Squamous Epithelial 0-3 HPF (0-3); WBC/HPF None Seen HPF (0-3)
[2017-07-18] MEDS ORDERED: diphenhydrAMINE 50 MG/ML VIAL IVP PRN (22:02)
[2017-07-19 04:55] LABS: INR-International Normal Ratio 2.4; Prothrombin Time 26.7 SEC (12.0-14.7)
[2017-07-19 05:16] LABS: ALT (SGPT) 67 U/L (8-55); AST (SGOT) 221 U/L (5-34); Albumin 2.1 g/dL (3.5-5.0); Alkaline Phosphatase 174 U/L (40-150); Anion Gap 10 mmol/L (10-20); BUN (Urea Nitrogen) 31 mg/dL (7.0-18.7); Calc. Creatinine Clearance 67 mL/min (70-130); Calcium 8.3 mg/dL (7.8-10.44); Carbon Dioxide 19 mmol/L (22-29); Chloride 97 mmol/L (98-107); Estimated GFR-MDRD 26; Globulin 4.1 g/dL (2.4-3.5); Glucose 94 mg/dL (70-105); Protein, Total 6.2 g/dL (6.0-8.3); Sodium 123 mmol/L (136-145)
[2017-07-19 05:26] LABS: Bilirubin, Total 26.6 mg/dL (0.2-1.2)
[2017-07-19 05:43] LABS: Bilirubin, Direct 17.6 mg/dL (0.1-0.3)
[2017-07-19] MEDS: prednisoLONE 15 MG/5 ML UDCUP PO SCH (10:53)
[2017-07-19] MEDS ORDERED: Albumin 25% 25 GM/100 ML BOT IVPB SCH (11:00)
--- NOTE | 2017-07-19 11:52 | PRG ---
DATE OF SERVICE: 07/19/2017 SUBJECTIVE: The patient is complaining of some nausea. She has had no vomiting. She is having good bowel movements. The case was discussed with Dr. Lee. OBJECTIVE: VITAL SIGNS: Temperature 97.4, pulse 69, respiratory rate 18, blood pressure 110/68. HEENT: Unremarkable except for scleral icterus. NECK: Supple. CHEST: Clear. CARDIOVASCULAR: Regular rate and rhythm. ABDOMEN: Soft, nontender with fullness in the abdomen is noted. It is difficult to assess fluid wav e. EXTREMITIES: Shows some edema. LABORATORY DATA: Shows a sodium of 123, potassium 3.0, CO2 of 19, BUN 31, creatinine 2.08, total carlyle irubin 26.6, AST 221, ALT of 67, alkaline phosphatase of 174, albumin of 21. Urinalysis from yesterd ay showed moderate blood, large bilirubin, small leukocyte esterase, and 11-20 rbcs. Repeat PT/INR s howed a PT of 26.4 with an INR of 2.4. Repeat CBC is not performed. ASSESSMENT: 1. Acute alcoholic hepatitis - patient was started on prednisolone yesterday. 2. Acute kidney injury - may be impending hepatorenal. RECOMMENDATIONS: 1. Begin midodrine. 2. Begin octreotide. 3. Begin albumin. 4. Discussed with Dr. Lee about starting IV fluids.
[2017-07-19] MEDS: Sodium Chloride 0.9% 1,000 ML IV SCH ×2 (12:20→23:43)
[2017-07-19 13:42] LABS: Osmolality, Urine 465 mOsm/kg (300-900)
[2017-07-19 13:53] LABS: Sodium, Urine Less than 20 mmol/L (Not Available)
[2017-07-19] MEDS: Midodrine HCl 5 MG TAB PO SCH ×2 (14:20→20:41)
--- NOTE | 2017-07-19 15:17 | PDOC.PN ---
- Subjective Encounter Start Date: 07/19/17 Encounter Start Time: 10:40 Subjective: HAD A GOOD NIGHTS REST. SOME ABD DISCOMFORT - Objective Resuscitation Status: Resuscitation Status FULL:Full Resuscitation MAR Reviewed: Yes Vital Signs & Weight: Vital Signs (12 hours) Temp Pulse Resp BP Pulse Ox 07/19/17 08:05 97.4 F L 69 18 110/68 94 L 07/19/17 08:00 97.4 F L 69 18 94 L Weight Weight 273 lb 3.2 oz I&O: 07/18/17 07/19/17 07/20/17 06:59 06:59 06:59 Intake Total 240 1010 Balance 240 1010 Result Diagrams: 07/18/17 05:20 07/19/17 04:35 Phys Exam - Physical Examination Constitutional: NAD HEENT: PERRLA, moist MMs ICTERIC SCLERA Neck: supple, full ROM Respiratory: no rhonchi Cardiovascular: RRR MOISES Gastrointestinal: non-tender DISTENDED Musculoskeletal: edema present Neurological: non-focal, moves all 4 limbs Psychiatric: normal affect, A&O x 3 Deviation from normal: JAUNDICE Dx/Plan (1) TIMI (acute kidney injury) Code(s): N17.9 - ACUTE KIDNEY FAILURE, UNSPECIFIED Status: Acute (2) Alcoholic hepatitis without ascites Code(s): K70.10 - ALCOHOLIC HEPATITIS WITHOUT ASCITES Status: Acute Comment : improving daily (3) Chronic hepatitis Code(s): K73.9 - CHRONIC HEPATITIS, UNSPECIFIED Status: Chronic Comment: total Ab positive, VL only 1000. will need Rx at some point with carmen (4) Cirrhosis Code(s): K74.60 - UNSPECIFIED CIRRHOSIS OF LIVER Status: Chronic Qualifiers: Comment: probably due to chronic hep C also (5) Coagulopathy Status: Chronic Comment: due to cirrhosis (6) Thrombocytopenia Code(s): D69.6 - THROMBOCYTOPENIA, UNSPECIFIED Status: Chronic Comment: due to cirrosis-induced portal hypertension and sequestration - Plan cont current plan of care, plan discussed w/ family POSSIBLE IMPENDING HEPATORENAL SYNDROME. MIDRODRINE, ALBUMIN -: PER HEPATOLOGISTS. RENAL ON CASE WELL. * .
[2017-07-19 16:40] LABS: Anion Gap 14 mmol/L (10-20); BUN (Urea Nitrogen) 32 mg/dL (7.0-18.7); Calc. Creatinine Clearance 66 mL/min (70-130); Calcium 8.6 mg/dL (7.8-10.44); Carbon Dioxide 18 mmol/L (22-29); Chloride 96 mmol/L (98-107); Estimated GFR-MDRD 25; Glucose 107 mg/dL (70-105); Sodium 125 mmol/L (136-145)
[2017-07-19 16:48] LABS: Potassium 2.9 mmol/L (3.5-5.1)
[2017-07-19] MEDS ORDERED: Potassium Chloride 20 MEQ TAB PO SCH (17:15)
--- NOTE | 2017-07-19 18:45 | PRG ---
DATE OF SERVICE: 07/19/2017 SUBJECTIVE: This is a 46-year-old female being seen for acute kidney injury. The patient denies any nausea or vomiting. PHYSICAL EXAMINATION: GENERAL: Patient is resting. VITAL SIGNS: Afebrile, pulse , breathing 16, blood pressure 110/68. HEAD/NECK: Normocephalic. Atraumatic. EYES: EOMI. No deformity. EARS: Clear. No ulcers. NOSE: Intact. No lesions. MOUTH: Clear. No discharge. THROAT: Clear. No exudate. LUNGS: Clear. No crackles. CARDIAC: S1, S2. No rub. ABDOMEN: Benign. BS+. GENITALIA/RECTUM: Gomez absent. BACK/EXTREMITIES: Lower extremities have edema. NEUROLOGICAL: Alert and motor intact. SKIN: Rash- Bruise- LYMPHATICS: Edema- Ulcer- LABORATORY DATA: Show sodium is 123, potassium is 3, bicarbonate 19, creatinine 2.0. ASSESSMENT AND RECOMMENDATIONS: 1. Acute kidney injury with chronic kidney disease due to hepatorenal syndrome. Agree with leyla n. 2. Hyponatremia, most likely due to volume overload, liver failure and renal failure. 3. Liver failure. Again, will later this afternoon. Overall, prognosis is extremely poor.
[2017-07-20 05:09] LABS: #Lymphocytes 1.1 thou/uL (1.20-3.40); #Monocytes 0.9 thou/uL (0.11-0.59); #Neutrophils 4.3 thou/uL (1.40-6.50); %Basophils 0.5 % (0.0-1.0); %Eosinophils 0.7 % (0.0-10.0); %Lymphocytes 16.7 % (21.0-51.0); %Monocytes 14.3 % (0.0-10.0); %Neutrophils 67.8 % (42.0-75.0); Hemoglobin 13.1 g/dL (12.0-16.0); INR-International Normal Ratio 2.4; Mean Corpuscular HGB CONC 32.8 g/dL (32.0-36.0); Mean Corpuscular Hemoglobin 34.7 pg (27.0-31.0); Mean Platelet Volume 7.4 fL (7.4-10.4); Platelet Count 54 thou/uL (130-400); RBC Distribution Width 13.6 % (11.5-14.5); Red Blood Cell (RBC) Count 3.78 mill/uL (4.20-5.40); White Blood Cell (WBC) Count 6.4 thou/uL (4.8-10.8)
[2017-07-20 05:37] LABS: Bilirubin, Total 28.9 mg/dL (0.2-1.2)
[2017-07-20 06:05] LABS: ALT (SGPT) 57 U/L (8-55); AST (SGOT) 181 U/L (5-34); Albumin 2.7 g/dL (3.5-5.0); Alkaline Phosphatase 140 U/L (40-150); Anion Gap 10 mmol/L (10-20); BUN (Urea Nitrogen) 34 mg/dL (7.0-18.7); Calc. Creatinine Clearance 69 mL/min (70-130); Calcium 8.4 mg/dL (7.8-10.44); Carbon Dioxide 21 mmol/L (22-29); Chloride 100 mmol/L (98-107); Estimated GFR-MDRD 27; Globulin 3.3 g/dL (2.4-3.5); Glucose 90 mg/dL (70-105); Potassium 3.1 mmol/L (3.5-5.1); Sodium 128 mmol/L (136-145)
[2017-07-20] MEDS: Midodrine HCl 5 MG TAB PO SCH ×3 (08:47→20:08)
[2017-07-20] MEDS: prednisoLONE 15 MG/5 ML UDCUP PO SCH (08:47)
--- NOTE | 2017-07-20 08:57 | PDOC.PN ---
- Subjective Encounter Start Date: 07/20/17 Encounter Start Time: 08:45 Subjective: WELL RESTED, CONTINUED EPIGASTRIC BURNING DISCOMFORT - Objective Resuscitation Status: Resuscitation Status FULL:Full Resuscitation MAR Reviewed: Yes Vital Signs & Weight: Weight Weight 273 lb 3.2 oz I&O: 07/19/17 07/20/17 07/21/17 06:59 06:59 06:59 Intake Total 1010 2880 Balance 1010 2880 Result Diagrams: 07/20/17 04:34 07/20/17 04:34 Phys Exam - Physical Examination Constitutional: NAD HEENT: PERRLA, moist MMs ICTERIC SCLERA Neck: supple, full ROM Respiratory: no wheezing, no rhonchi Cardiovascular: RRR Gastrointestinal: non-tender DISTENDED Musculoskeletal: edema present Neurological: non-focal, moves all 4 limbs Psychiatric: normal affect, A&O x 3 Deviation from normal: JAUNDICE Dx/Plan (1) TIMI (acute kidney injury) Code(s): N17.9 - ACUTE KIDNEY FAILURE, UNSPECIFIED Status: Acute (2) Alcoholic hepatitis without ascites Code(s): K70.10 - ALCOHOLIC HEPATITIS WITHOUT ASCITES Status: Acute Comment : improving daily (3) Chronic hepatitis Code(s): K73.9 - CHRONIC HEPATITIS, UNSPECIFIED Status: Chronic Comment: total Ab positive, VL only 1000. will need Rx at some point with carmen (4) Cirrhosis Code(s): K74.60 - UNSPECIFIED CIRRHOSIS OF LIVER Status: Chronic Qualifiers: Comment: probably due to chronic hep C also (5) Coagulopathy Status: Chronic Comment: due to cirrhosis (6) Thrombocytopenia Code(s): D69.6 - THROMBOCYTOPENIA, UNSPECIFIED Status: Chronic Comment: due to cirrosis-induced portal hypertension and sequestration - Plan cont current plan of care WORSENING THROMBOCYTOPENIA, TBILI INCREASED -: PROGNOSIS POOR...DEFER TO R[employer] * .
[2017-07-20] MEDS: Albumin 25% 25 GM/100 ML BOT IVPB SCH (09:39)
--- NOTE | 2017-07-20 09:52 | PRG ---
DATE OF SERVICE: 07/20/2017 SUBJECTIVE: The patient is feeling well. She slept well last night. She is having no nausea, vomit ing. She is having no bowel movements. She denies any abdominal pain. OBJECTIVE: VITAL SIGNS: Temperature is 97.9, pulse 72, respiratory rate 16, and blood pressure 98/61. CHEST: Clear. CARDIOVASCULAR: Regular rate and rhythm. ABDOMEN: Soft, protuberant, obese, nontender. LABORATORY DATA: Shows a white blood cell count 6.4, hemoglobin 13.1, and hematocrit of 40. PT is 2 7.0 with an INR of 2.4. Chemistry shows sodium 128, potassium 3.1, CO2 21, BUN 34, creatinine 2.01, total bilirubin 28.9, AST of 81, ALT of 57, and albumin of 2.7. ASSESSMENT: 1. Severe alcoholic hepatitis. 2. Cirrhosis. 3. Hepatorenal syndrome - improvement in creatinine today. RECOMMENDATIONS: 1. Continue midodrine. 2. Continue octreotide. 3. Continue albumin. 4. Continue IV fluids.
--- NOTE | 2017-07-20 12:48 | PRG ---
DATE OF SERVICE: 07/20/2017 SUBJECTIVE: This is a 46-year-old female being seen for acute liver failure and acute kidney injury. The patient denies any nausea, vomiting, or chest pain. PHYSICAL EXAMINATION: GENERAL: Patient is awake, alert. VITAL SIGNS: Afebrile, pulse 72, breathing at 16, blood pressure 98/61. HEAD/NECK: Normocephalic. Atraumatic. EYES: EOMI. No deformity. EARS: Clear. No ulcers. NOSE: Intact. No lesions. MOUTH: Clear. No discharge. THROAT: Clear. No exudate. LUNGS: Clear. No crackles. CARDIAC: S1, S2. No rub. ABDOMEN: Benign. BS+. GENITALIA/RECTUM: Gomez absent. BACK/EXTREMITIES: Edema 0+ Ulcer- NEUROLOGICAL: Alert and motor intact. SKIN: Rash- Bruise- LYMPHATICS: Edema- Ulcer- LABORATORY DATA: Show hemoglobin 13.1. Sodium 128, potassium 3.1, creatinine 2.0. ASSESSMENT AND RECOMMENDATIONS: 1. Acute kidney injury, improved. 2. Hypertension, stable. 3. Anemia, stable. 4. Hypokalemia. Recommend high potassium diet, recheck potassium. No indication for dialysis at th is time.
[2017-07-20] MEDS: Octreotide Acetate 1,250 MCG in Sodium Chloride 0.9% 250 ML 250 ML IVPB SCH (13:18)
[2017-07-20] MEDS: Sodium Chloride 0.9% 1,000 ML IV SCH (15:06)
[2017-07-21] MEDS: Sodium Chloride 0.9% 1,000 ML IV SCH ×2 (03:22→15:51)
[2017-07-21 05:40] LABS: #Monocytes 0.8 thou/uL (0.11-0.59); #Neutrophils 4.1 thou/uL (1.40-6.50); %Basophils 0.1 % (0.0-1.0); %Eosinophils 0.7 % (0.0-10.0); %Lymphocytes 16.2 % (21.0-51.0); %Monocytes 12.9 % (0.0-10.0); %Neutrophils 70.2 % (42.0-75.0); Hemoglobin 12.3 g/dL (12.0-16.0); Mean Corpuscular HGB CONC 33.5 g/dL (32.0-36.0); Mean Corpuscular Hemoglobin 34.8 pg (27.0-31.0); Mean Platelet Volume 7.1 fL (7.4-10.4); Platelet Count 49 thou/uL (130-400); RBC Distribution Width 13.6 % (11.5-14.5); Red Blood Cell (RBC) Count 3.54 mill/uL (4.20-5.40); White Blood Cell (WBC) Count 5.9 thou/uL (4.8-10.8)
[2017-07-21 06:01] LABS: ALT (SGPT) 54 U/L (8-55); AST (SGOT) 157 U/L (5-34); Alkaline Phosphatase 126 U/L (40-150); Anion Gap 11 mmol/L (10-20); BUN (Urea Nitrogen) 32 mg/dL (7.0-18.7); Calc. Creatinine Clearance 78 mL/min (70-130); Calcium 8.4 mg/dL (7.8-10.44); Carbon Dioxide 18 mmol/L (22-29); Chloride 103 mmol/L (98-107); Estimated GFR-MDRD 31; Globulin 2.9 g/dL (2.4-3.5); Glucose 109 mg/dL (70-105); Potassium 3.3 mmol/L (3.5-5.1); Protein, Total 5.9 g/dL (6.0-8.3); Sodium 129 mmol/L (136-145)
[2017-07-21 06:10] LABS: Bilirubin, Total 28.5 mg/dL (0.2-1.2)
[2017-07-21] MEDS: Albumin 25% 25 GM/100 ML BOT IVPB SCH (08:07)
[2017-07-21] MEDS: prednisoLONE 15 MG/5 ML UDCUP PO SCH (08:08)
[2017-07-21] MEDS: Midodrine HCl 5 MG TAB PO SCH ×3 (08:08→20:19)
--- NOTE | 2017-07-21 12:07 | PRG ---
Patient Name: ANTHONY MACHADO Date of service: 07/21/2017 Subjective: Patient was seen and examined at bedside and overnight events noted. Patient denies any shortness of breath or chest pain or palpitation. No history of nausea or vomiting or diarrhea or fever or chills or cramps. Objective: General: This is a well-built female in no apparent distress. Vital signs: Temperature 97.7, pulse 80, respirations 18, blood pressure 122/69. HEENT: Atraumatic, normocephalic. Oral mucosa is moist. Icterus present. Neck: Supple. Cardiovascular: S1 S2 heard. Rate and rhythm regular. Respiratory: Clear to auscultation. Gastrointestinal: Abdomen is soft. Musculoskeletal: No tenderness. No edema. Dermatologic: No skin rash. Neurologic: Alert and awake and oriented X3. No focal neurologic deficits. Moving all the extremit ies. Psychiatric: Mood and affect normal. LABORATORY DATA: Sodium is 129, potassium is 3.3, BUN 32, creatinine is 1.7. ASSESSMENT AND PLAN: 1. Acute kidney injury secondary to cardiorenal syndrome, slowly improving. Avoid nephrotoxins. 2. Hypokalemia, replace with caution. 3. Anemia. 4. Hypertension, stable. 5. Hepatorenal syndrome. 6. Elevated liver enzymes. 7. Hypoalbuminemia secondary to liver disease. Renal function getting better. We will monitor.
[2017-07-21] MEDS: Octreotide Acetate 1,250 MCG in Sodium Chloride 0.9% 250 ML 250 ML IVPB SCH (13:23)
--- NOTE | 2017-07-21 15:34 | PDOC.PN ---
- Subjective Encounter Start Date: 07/21/17 Encounter Start Time: 15:25 Subjective: f/u for alcohol induced hepatitis, hepatorenal syndrome with TIMI likely -: hepatorenal syndrome. Renal fxn improved with supportive measures. -: Overall feels better. Appetite ok. + BM x 2. - Objective Resuscitation Status: Resuscitation Status FULL:Full Resuscitation MAR Reviewed: Yes Vital Signs & Weight: Vital Signs (12 hours) Temp Pulse Resp BP Pulse Ox 07/21/17 08:00 97.7 F 70 16 94 L 07/21/17 07:57 97.7 F 70 16 112/69 91 L Weight Weight 273 lb 3.2 oz I&O: 07/20/17 07/21/17 07/22/17 06:59 06:59 06:59 Intake Total 2880 3430 Balance 2880 3430 Result Diagrams: 07/21/17 05:07 07/21/17 05:07 Additional Labs: Laboratory Tests 07/18/17 07/18/17 07/19/17 09:25 16:01 04:35 PT INR Sodium 125 L 123 L Potassium 3.0 L 3.0 L Creatinine 1.95 H 2.08 H Total Bilirubin 26.6 H AST 221 H ALT 67 H TSH 3rd Generation 0.4573 07/19/17 07/20/17 07/20/17 16:14 04:34 04:34 PT 27.0 H INR 2.4 Sodium 125 L 128 L Potassium 2.9 L* 3.1 L Creatinine 2.12 H 2.01 H Total Bilirubin 28.9 H AST 181 H ALT 57 H TSH 3rd Generation 07/21/17 05:07 PT INR Sodium Potassium Creatinine Total Bilirubin 28.5 H AST 157 H ALT 54 TSH 3rd Generation Phys Exam - Physical Examination Constitutional: NAD + scleral icterus bilat HEENT: PERRLA, oral pharynx no lesions Neck: no JVD, supple Respiratory: no wheezing, clear to auscultation bilateral Cardiovascular: RRR protuberant, no mass, mild TTP diffusely Gastrointestinal: soft, positive bowel sounds Musculoskeletal: pulses present Neurological: normal sensation, moves all 4 limbs Psychiatric: A&O x 3 Deviation from normal: Jaundiced Skin: normal turgor, cap refill <2 seconds Dx/Plan (1) TIMI (acute kidney injury) Code(s): N17.9 - ACUTE KIDNEY FAILURE, UNSPECIFIED Status: Acute Comment: Improved with IVF's, Albumin, avoid nephrotoxic meds and contrast media (2) Hepatorenal syndrome Code(s): K76.7 - HEPATORENAL SYNDROME Status: Acute Comment: continue supportive mgmt (3) Hypokalemia Code(s): E87.6 - HYPOKALEMIA Status: Acute Comment: KCL 40meq BID, repeat K + level in am (4) Alcoholic hepatitis without ascites Code(s): K70.10 - ALCOHOLIC HEPATITIS WITHOUT ASCITES Status: Chronic Comment: Persistent, supportive measures (5) Cirrhosis Code(s): K74.60 - UNSPECIFIED CIRRHOSIS OF LIVER Status: Chronic Qualifiers: Comment: probably due to chronic hep C also, see above for mgmt (6) Coagulopathy Status: Chronic Comment: due to cirrhosis, no ASA, NSAIDs - Plan out of bed/ambulate, DVT proph w/SCDs Continue supportive mgmt -: Prednisolone 40mg daily -: Continue IVF 75ml/h -: Continue Octreotide IV per GI recommendations -: AM lab: CMP, CBC, Ammonia * .
[2017-07-21] MEDS: Potassium Chloride 20 MEQ TAB PO SCH (17:35)
--- NOTE | 2017-07-21 18:36 | PRG ---
DATE OF SERVICE: 07/21/2017 SUBJECTIVE: Ms. Whitman has less distention in her abdomen. She feels more comfortable. She did munguia ve a little bit of nausea this morning. She had a good bowel movement today. OBJECTIVE: VITAL SIGNS: Temperature 97.7, pulse 70, blood pressure 112/69, oxygen saturation 94% on 2 liters. GENERAL: She is jaundiced. LUNGS: Clear to auscultation bilaterally. HEART: Regular rate and rhythm. ABDOMEN: Mildly distended, but nontender and fairly soft. Bowel sounds are present. EXTREMITIES: 2+ pitting lower extremity edema. LABORATORY DATA: White blood cell count 5.9, hemoglobin 12.3, platelets 49. INR 2.4. Sodium 129, p otassium 3.3, chloride 103, CO2 18, BUN 32, creatinine 1.78, bilirubin 28.5, AST 157, ALT 54, albumin 3.0; however, this is on IV albumin. Her albumin was 2.1 on 07/19/2017. IMPRESSION: 1. Severe alcoholic hepatitis. 2. Acute renal failure. 3. Cirrhosis. RECOMMENDATIONS: 1. She has been started on prednisolone. 2. Continue albumin and midodrine to try to profuse the kidneys and improve her creatinine. 3. We will continue to follow and continue current management until we see further improvement in he r creatinine.
[2017-07-22] MEDS: Sodium Chloride 0.9% 1,000 ML IV SCH ×2 (03:30→17:39)
[2017-07-22 04:27] LABS: Lymphocytes 19 % (21-51); MDiff Complete? YES; Mean Corpuscular HGB CONC 33.1 g/dL (32.0-36.0); Mean Corpuscular Hemoglobin 34.6 pg (27.0-31.0); Mean Platelet Volume 7.4 fL (7.4-10.4); Monocytes 15 % (0-10); Neutrophil 66 % (42-75); PLT Morphology Comment Appears Decreased; Platelet Count 44 thou/uL (130-400); RBC Distribution Width 13.7 % (11.5-14.5); Red Blood Cell (RBC) Count 3.46 mill/uL (4.20-5.40); White Blood Cell (WBC) Count 5.4 thou/uL (4.8-10.8)
[2017-07-22 04:45] LABS: Bilirubin, Total 28.9 mg/dL (0.2-1.2)
[2017-07-22 05:02] LABS: ALT (SGPT) 51 U/L (8-55); AST (SGOT) 128 U/L (5-34); Albumin 3.4 g/dL (3.5-5.0); Alkaline Phosphatase 136 U/L (40-150); Anion Gap 11 mmol/L (10-20); BUN (Urea Nitrogen) 30 mg/dL (7.0-18.7); Calc. Creatinine Clearance 85 mL/min (70-130); Calcium 8.6 mg/dL (7.8-10.44); Carbon Dioxide 20 mmol/L (22-29); Chloride 106 mmol/L (98-107); Estimated GFR-MDRD 34; Globulin 2.7 g/dL (2.4-3.5); Glucose 109 mg/dL (70-105); Potassium 3.5 mmol/L (3.5-5.1); Protein, Total 6.1 g/dL (6.0-8.3); Sodium 133 mmol/L (136-145)
[2017-07-22] MEDS: Midodrine HCl 5 MG TAB PO SCH ×3 (10:16→20:23)
[2017-07-22] MEDS: prednisoLONE 15 MG/5 ML UDCUP PO SCH (10:16)
[2017-07-22] MEDS: Albumin 25% 25 GM/100 ML BOT IVPB SCH (10:26)
[2017-07-22] MEDS: Potassium Chloride 20 MEQ TAB PO SCH ×2 (10:27→16:11)
--- NOTE | 2017-07-22 15:42 | PDOC.PN ---
- Subjective Encounter Start Date: 07/22/17 Encounter Start Time: 15:30 Subjective: f/u for severe ETOH-induced hepatitis and cirrhosis tx with Albumin, -: Midodrine and Prednisolone. LFT's improved but bilirubin remains elevated -: c/o some abd pain. - Objective Resuscitation Status: Resuscitation Status FULL:Full Resuscitation MAR Reviewed: Yes Vital Signs & Weight: Vital Signs (12 hours) Temp Pulse Resp BP Pulse Ox 07/22/17 08:00 97.7 F 72 26 H 94 L 07/22/17 07:43 97.7 F 72 26 H 94 L 07/22/17 04:00 97.9 F 67 18 105/55 L 91 L Weight Weight 273 lb 3.2 oz I&O: 07/21/17 07/22/17 07/23/17 06:59 06:59 06:59 Intake Total 3430 1420 Balance 3430 1420 Result Diagrams: 07/22/17 03:46 07/22/17 03:46 Additional Labs: Laboratory Tests 07/18/17 07/18/17 07/19/17 09:25 16:01 04:35 PT INR Sodium 125 L 123 L Potassium 3.0 L 3.0 L Creatinine 1.95 H 2.08 H Total Bilirubin 26.6 H AST 221 H ALT 67 H TSH 3rd Generation 0.4573 07/19/17 07/20/17 07/20/17 16:14 04:34 04:34 PT 27.0 H INR 2.4 Sodium 125 L 128 L Potassium 2.9 L* 3.1 L Creatinine 2.12 H 2.01 H Total Bilirubin 28.9 H AST 181 H ALT 57 H TSH 3rd Generation 07/21/17 05:07 PT INR Sodium Potassium Creatinine Total Bilirubin 28.5 H AST 157 H ALT 54 TSH 3rd Generation Phys Exam - Physical Examination + scleral icterus HEENT: PERRLA, oral pharynx no lesions Neck: no JVD, supple Respiratory: no wheezing, clear to auscultation bilateral Cardiovascular: RRR protuberant, mild fluid wave, distended Gastrointestinal: positive bowel sounds Musculoskeletal: pulses present, edema present Neurological: normal sensation, moves all 4 limbs Psychiatric: A&O x 3 Skin: normal turgor, cap refill <2 seconds Dx/Plan (1) TIMI (acute kidney injury) Code(s): N17.9 - ACUTE KIDNEY FAILURE, UNSPECIFIED Status: Acute Comment: Improved with IVF's, Albumin, avoid nephrotoxic meds and contrast media, continue Midodrine, Prednisolone and Albumin (2) Hepatorenal syndrome Code(s): K76.7 - HEPATORENAL SYNDROME Status: Acute Comment: continue supportive mgmt (3) Hypokalemia Code(s): E87.6 - HYPOKALEMIA Status: Acute Comment: KCL 40meq BID, repeat K + level in am (4) Alcoholic hepatitis without ascites Code(s): K70.10 - ALCOHOLIC HEPATITIS WITHOUT ASCITES Status: Chronic Comment: Persistent, supportive measures (5) Cirrhosis Code(s): K74.60 - UNSPECIFIED CIRRHOSIS OF LIVER Status: Chronic Qualifiers: Comment: probably due to chronic hep C also, see above for mgmt, MELD score = 36 with 3-month survival around 35-40% (6) Coagulopathy Status: Chronic Comment: due to cirrhosis, no ASA, NSAIDs - 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 3-month survival 35-40% -: Place PICC line for IV access, decrease needle sticks * Morphine Sulfate 2mg IV q4h prn abd pain * AM lab: CMP, CBC * Consider Palliative care * Consider Transplant options
[2017-07-22] MEDS ORDERED: Morphine 5 MG/ML SYRINGE SLOW IVP PRN (16:05)
[2017-07-22] MEDS: Octreotide Acetate 1,250 MCG in Sodium Chloride 0.9% 250 ML 250 ML IVPB SCH (16:13)
--- NOTE | 2017-07-22 16:47 | PRG ---
DATE OF SERVICE: 07/22/2017 SUBJECTIVE: Ms. Whitman has no acute complaints today. She is tolerating an oral diet. She had two good bowel movements yesterday, but none today. No nausea or vomiting. She has had some intermitte nt pain in the right upper quadrant. OBJECTIVE: VITAL SIGNS: Temperature 97.7, pulse 72, blood pressure 105/55. GENERAL: She is jaundiced, no acute distress, alert and oriented x3. LUNGS: Clear to auscultation bilaterally. HEART: Regular rate and rhythm. ABDOMEN: Soft, nontender, nondistended. Bowel sounds are present. EXTREMITIES: 2+ pitting lower extremity edema. LABORATORY DATA: Creatinine is 1.63 down from 1.78 yesterday, bilirubin 28.9. INR on 07/20/2017 was 2.4. IMPRESSION: 1. Acute alcoholic hepatitis. She is currently on prednisolone. 2. Decompensated cirrhosis. She is likely going to need liver transplant. She is working on [employer] insurance. She is not a transplant candidate at this point given her recent alcohol use just baltazar or to the last hospitalization. 3. Acute renal failure. This is being treated with albumin, octreotide and midodrine. We will cont inue this. Her creatinine is improving. 4. Chronic hepatitis C. 5. Ascites by physical exam and lower extremity edema. RECOMMENDATIONS: 1. Prednisolone p.o. 2. Continue octreotide, albumin and midodrine. 3. Given the elevated ammonia level of 114, she is being started on lactulose today. She is alert a nd oriented x3. 4. Continue to follow the trend of her creatinine.
[2017-07-22] MEDS ORDERED: diphenhydrAMINE 25 MG CAP PO SCH (23:45)
[2017-07-23 04:42] LABS: Bilirubin, Total 26.9 mg/dL (0.2-1.2)
[2017-07-23 04:43] LABS: #Lymphocytes 0.8 thou/uL (1.20-3.40); #Monocytes 0.7 thou/uL (0.11-0.59); #Neutrophils 4.2 thou/uL (1.40-6.50); %Eosinophils 0.3 % (0.0-10.0); %Lymphocytes 14.6 % (21.0-51.0); %Monocytes 11.5 % (0.0-10.0); %Neutrophils 73.6 % (42.0-75.0); Hemoglobin 11.7 g/dL (12.0-16.0); Mean Corpuscular HGB CONC 32.9 g/dL (32.0-36.0); Mean Corpuscular Hemoglobin 34.4 pg (27.0-31.0); Mean Platelet Volume 6.9 fL (7.4-10.4); Platelet Count 39 thou/uL (130-400); RBC Distribution Width 13.8 % (11.5-14.5); White Blood Cell (WBC) Count 5.7 thou/uL (4.8-10.8)
[2017-07-23 04:45] LABS: ALT (SGPT) 48 U/L (8-55); AST (SGOT) 103 U/L (5-34); Albumin 3.6 g/dL (3.5-5.0); Alkaline Phosphatase 139 U/L (40-150); Anion Gap 12 mmol/L (10-20); BUN (Urea Nitrogen) 27 mg/dL (7.0-18.7); Calc. Creatinine Clearance 97 mL/min (70-130); Calcium 8.5 mg/dL (7.8-10.44); Carbon Dioxide 18 mmol/L (22-29); Chloride 111 mmol/L (98-107); Estimated GFR-MDRD 40; Globulin 2.5 g/dL (2.4-3.5); Glucose 113 mg/dL (70-105); Potassium 3.8 mmol/L (3.5-5.1); Protein, Total 6.1 g/dL (6.0-8.3); Sodium 137 mmol/L (136-145)
[2017-07-23] MEDS: Sodium Chloride 0.9% 1,000 ML IV SCH ×2 (05:15→21:29)
--- NOTE | 2017-07-23 08:52 | PRG ---
DATE OF SERVICE: 07/22/2017 SUBJECTIVE: Patient was seen and examined at bedside and overnight events noted. Patient denies any shortness of breath or chest pain or palpitation. No history of nausea or vomiting or diarrhea or fever or chills or cramps. OBJECTIVE: GENERAL: This is a well-built female in no apparent distress. VITAL SIGNS: Temperature 97.7. Pulse 72. Respiratory rate 26. Blood pressure 105/55. HEENT: Atraumatic, normocephalic, Oral mucosa is moist. NECK: Supple CARDIOVASCULAR: S1, S2 heard. Rate and rhythm regular. RESPIRATORY: Clear to auscultation. GASTROINTESTINAL: Abdomen is soft. MUSCULOSKELETAL: No tenderness, No edema. DERMATOLOGIC: No skin rash. NEUROLOGIC: Alert and awake and oriented X3, No focal neurologic deficits. Moving all the extremitie s. PSYCHIATRIC: Mood and affect normal. LABORATORY DATA: Potassium is 3.5, BUN is 30, creatinine is 1.6. ASSESSMENT AND PLAN: 1. Acute kidney injury. 2. Hepatorenal syndrome - much better. 3. Hypokalemia, replace and monitor. 4. Hepatorenal syndrome. 5. Hypoalbuminemia. 6. Hypertension. 7. Anemia. Overall, renal function is getting better.
[2017-07-23] MEDS: Midodrine HCl 5 MG TAB PO SCH ×3 (09:34→20:05)
[2017-07-23] MEDS: Potassium Chloride 20 MEQ TAB PO SCH (09:35)
[2017-07-23] MEDS: prednisoLONE 15 MG/5 ML UDCUP PO SCH (09:36)
[2017-07-23] MEDS: Albumin 25% 25 GM/100 ML BOT IVPB SCH (12:27)
--- NOTE | 2017-07-23 14:25 | PDOC.PN ---
- Subjective Encounter Start Date: 07/23/17 Encounter Start Time: 14:15 Subjective: f/u for ETOH-induced hepatitis, cirrhosis tx with Albumin, Midodrine and -: Prednisolone and Octreotide gtt. Feels ok overall. Had PICC line placed -: today. - Objective Resuscitation Status: Resuscitation Status FULL:Full Resuscitation MAR Reviewed: Yes Vital Signs & Weight: Vital Signs (12 hours) Temp Pulse Resp BP BP Pulse Ox 07/23/17 12:00 97.9 F 65 24 H 132/86 93 L 07/23/17 08:00 97.6 F 72 18 116/71 90 L 07/23/17 05:00 97.9 F 77 19 116/79 93 L Weight Weight 273 lb 3.2 oz I&O: 07/22/17 07/23/17 07/24/17 06:59 06:59 06:59 Intake Total 1420 3300 Balance 1420 3300 Result Diagrams: 07/23/17 03:57 07/23/17 03:57 Additional Labs: Laboratory Tests 07/18/17 07/18/17 07/19/17 09:25 16:01 04:35 PT INR Sodium 125 L 123 L Potassium 3.0 L 3.0 L Creatinine 1.95 H 2.08 H Total Bilirubin 26.6 H AST 221 H ALT 67 H TSH 3rd Generation 0.4573 07/19/17 07/20/17 07/20/17 16:14 04:34 04:34 PT 27.0 H INR 2.4 Sodium 125 L 128 L Potassium 2.9 L* 3.1 L Creatinine 2.12 H 2.01 H Total Bilirubin 28.9 H AST 181 H ALT 57 H TSH 3rd Generation 07/21/17 05:07 PT INR Sodium Potassium Creatinine Total Bilirubin 28.5 H AST 157 H ALT 54 TSH 3rd Generation Laboratory Tests 07/22/17 03:46 Ammonia 114 H Phys Exam - Physical Examination Constitutional: NAD + scleral icterus bilat, alert, smiling HEENT: PERRLA, oral pharynx no lesions Neck: no JVD, supple Respiratory: no wheezing, clear to auscultation bilateral Cardiovascular: RRR distended, mild fluid wave Gastrointestinal: soft, positive bowel sounds Musculoskeletal: no edema, pulses present Neurological: normal sensation, moves all 4 limbs Psychiatric: A&O x 3 Skin: normal turgor, cap refill <2 seconds Dx/Plan (1) TIMI (acute kidney injury) Code(s): N17.9 - ACUTE KIDNEY FAILURE, UNSPECIFIED Status: Acute Comment: Improved with IVF's, Albumin, avoid nephrotoxic meds and contrast media, continue Midodrine, Prednisolone and Albumin (2) Hepatorenal syndrome Code(s): K76.7 - HEPATORENAL SYNDROME Status: Acute Comment: continue supportive mgmt (3) Hypokalemia Code(s): E87.6 - HYPOKALEMIA Status: Acute Comment: Improved, KCL 40meq daily, repeat K+ level in am (4) Alcoholic hepatitis without ascites Code(s): K70.10 - ALCOHOLIC HEPATITIS WITHOUT ASCITES Status: Chronic Comment: Persistent, supportive measures (5) Cirrhosis Code(s): K74.60 - UNSPECIFIED CIRRHOSIS OF LIVER Status: Chronic Qualifiers: Comment: Secondary to ETOH and chronic hep C, MELD score = 36 with 3-month survival around 35-40% (6) Coagulopathy Status: Chronic Comment: due to cirrhosis, no ASA, NSAIDs - Plan plan discussed w/ family, rn social services, out of bed/ambulate, DVT proph w/SCDs Continue Octreotide gtt -: Continue Prednisolone, Albumin and Midodrine -: Continue Lactulose -: Decrease KCL 40meq daily -: PICC line placed today * AM lab: CMP, CBC
--- NOTE | 2017-07-23 15:43 | SPC ---
LEFT UPPER EXTREMITY PICC LINE ULTRASOUND AND FLUOROSCOPIC GUIDANCE: Fluoroscopy time: 0 minutes Dose: 76 mGy*cm2 PROCEDURE: After informed consent had been obtained, the patient was placed on the interventional suite table in a supine position. The left arm was prepped and draped in a standard sterile fashion. Topical anes thesia was achieved utilizing 1% Lidocaine and sodium bicarbonate. Under real-time sonography, the b asilic vein of the left upper extremity was accessed with a small caliber needle with venous flash pr esent at the needle hub. A guidewire was then advanced in to the needle, and under real-time fluoros copy, the guidewire was advanced to the level of the inferior vena cava to confirm appropriate venous placement. A small skin incision was made and the needle was removed. Over the guidewire, a single lumen PICC line was cut to 45 cm. The PICC line was advanced under real-time fluoroscopy over the g uidewire to the level of the cavoatrial junction. The guidewire and peelaway sheath were then remove d. PICC line flushed and aspirated appropriately and was secured to the left upper extremity. There were no procedural complications. IMPRESSION: Technically successful ultrasound and fluoroscopic-guided left basilic single lumen PICC line placeme nt, as above. POS: [facility]
--- NOTE | 2017-07-23 16:09 | PRG ---
DATE OF SERVICE: 07/23/2017 SUBJECTIVE: Ms. Whitman has no pain today. She had two bowel movements today. She has had no nause a or vomiting. OBJECTIVE: VITAL SIGNS: Temperature 97.8, pulse 65, blood pressure 132/86. GENERAL: She is in no acute distress, alert and oriented x3. She is jaundiced. LUNGS: Clear to auscultation bilaterally. HEART: Regular rate and rhythm. ABDOMEN: Soft, nontender, mildly distended. Bowel sounds are present. EXTREMITIES: 2+ pitting lower extremity edema. LABORATORY DATA: Hemoglobin is 11.7, platelets 39,000. INR 2.4, creatinine 1.43 down from 1.63 yest erday, bilirubin is 26.9. IMPRESSION: 1. Severe alcoholic hepatitis. She remains on prednisolone. 2. Decompensated cirrhosis. 3. Acute renal failure. Her creatinine continues to improve with infusion of albumin, octreotide an d oral midodrine. 4. Chronic hepatitis C. 5. Ascites and lower extremity edema. RECOMMENDATIONS: 1. Continue prednisolone. 2. Continue octreotide, albumin, and midodrine. 3. She has been started on lactulose. If she develops diarrhea on this, then cut it back to once a day. We will continue current dosing for now. 4. We will continue to follow trend of her creatinine.
--- NOTE | 2017-07-23 17:08 | PRG ---
DATE OF SERVICE: 07/23/2017 SUBJECTIVE: Patient was seen and examined at bedside and overnight events noted. Patient denies any shortness of breath or chest pain or palpitation. No history of nausea or vomiting or diarrhea or fev er or chills or cramps. OBJECTIVE: General: This is an obese female in no apparent distress. Vital Signs: Temperature 97.9, pulse 60, respiratory rate 18, and blood pressure 116/71. HEENT: Atraumatic, normocephalic. Oral mucosa is moist. Neck: Supple. Cardiovascular: S1 and S2 heard. Rate and rhythm regular. Respiratory: Clear to auscultation. Gastrointestinal: Abdomen is soft. Musculoskeletal: No tenderness. No edema. Dermatologic: No skin rash. Neurologic: Alert and awake and oriented X3. No focal neurologic deficits. Moving all the extremitie s. Psychiatric: Mood and affect normal. LABORATORY DATA: Potassium is 3.8, BUN is 27, creatinine is 1.4. ASSESSMENT AND PLAN: 1. Acute kidney injury. Renal function is getting better. 2. Hepatorenal syndrome. 3. Hypokalemia, replace. 4. Hypertension. Overall, renal function is getting better. We will follow.
[2017-07-23] MEDS: Octreotide Acetate 1,250 MCG in Sodium Chloride 0.9% 250 ML 250 ML IVPB SCH (20:06)
[2017-07-23] MEDS: diphenhydrAMINE 25 MG CAP PO PRN (21:29)
[2017-07-24] MEDS: diphenhydrAMINE 25 MG CAP PO PRN ×2 (02:26→23:51)
[2017-07-24 04:06] LABS: ALT (SGPT) 51 U/L (8-55); AST (SGOT) 105 U/L (5-34); Albumin 3.7 g/dL (3.5-5.0); Alkaline Phosphatase 156 U/L (40-150); Anion Gap 11 mmol/L (10-20); BUN (Urea Nitrogen) 24 mg/dL (7.0-18.7); Calc. Creatinine Clearance 111 mL/min (70-130); Carbon Dioxide 17 mmol/L (22-29); Chloride 113 mmol/L (98-107); Estimated GFR-MDRD 46; Globulin 2.5 g/dL (2.4-3.5); Glucose 113 mg/dL (70-105); Potassium 3.8 mmol/L (3.5-5.1); Protein, Total 6.2 g/dL (6.0-8.3); Sodium 137 mmol/L (136-145)
[2017-07-24 04:16] LABS: Bilirubin, Total 26.3 mg/dL (0.2-1.2)
[2017-07-24 05:16] LABS: Band 4 % (5-11); Hemoglobin 11.6 g/dL (12.0-16.0); Lymphocytes 16 % (21-51); MDiff Complete? YES; Macrocytosis MODERATE=16-30 cells (100X) (0-5/hpf); Mean Corpuscular HGB CONC 32.8 g/dL (32.0-36.0); Mean Corpuscular Hemoglobin 34.5 pg (27.0-31.0); Mean Platelet Volume 7.7 fL (7.4-10.4); Metamyelocyte 1 % (0-0); Monocytes 9 % (0-10); Myelocyte 1 % (0-0); Neutrophil 69 % (42-75); PLT Morphology Comment Appears Decreased; Platelet Count 39 thou/uL (130-400); RBC Distribution Width 14.3 % (11.5-14.5); Red Blood Cell (RBC) Count 3.37 mill/uL (4.20-5.40); White Blood Cell (WBC) Count 5.9 thou/uL (4.8-10.8)
[2017-07-24] MEDS: Albumin 25% 25 GM/100 ML BOT IVPB SCH (09:02)
[2017-07-24] MEDS: prednisoLONE 15 MG/5 ML UDCUP PO SCH (09:02)
[2017-07-24] MEDS: Potassium Chloride 20 MEQ TAB PO SCH (09:03)
[2017-07-24] MEDS: Midodrine HCl 5 MG TAB PO SCH ×3 (09:03→20:03)
[2017-07-24] MEDS: Sodium Chloride 0.9% 1,000 ML IV SCH (14:25)
--- NOTE | 2017-07-24 17:00 | PDOC.PN ---
- Subjective Encounter Start Date: 07/24/17 Encounter Start Time: 16:50 Subjective: f/u for ETOH-induced hepatitis and cirrhosis with hepatorenal syndrome. -: Overall feeling better and renal function improved. Appetite improved. -: Ambulated in halls. - Objective Resuscitation Status: Resuscitation Status FULL:Full Resuscitation MAR Reviewed: Yes Vital Signs & Weight: Vital Signs (12 hours) Temp Pulse Resp BP Pulse Ox 07/24/17 08:00 97.7 F 71 16 120/79 91 L Weight Weight 273 lb 3.2 oz I&O: 07/23/17 07/24/17 07/25/17 06:59 06:59 06:59 Intake Total 3300 1120 Balance 3300 1120 Result Diagrams: 07/24/17 03:30 07/24/17 03:30 Additional Labs: Laboratory Tests 07/18/17 07/18/17 07/19/17 09:25 16:01 04:35 PT INR Sodium 125 L 123 L Potassium 3.0 L 3.0 L Creatinine 1.95 H 2.08 H Total Bilirubin 26.6 H AST 221 H ALT 67 H Ammonia TSH 3rd Generation 0.4573 07/19/17 07/20/17 07/20/17 16:14 04:34 04:34 PT 27.0 H INR 2.4 Sodium 125 L 128 L Potassium 2.9 L* 3.1 L Creatinine 2.12 H 2.01 H Total Bilirubin 28.9 H AST 181 H ALT 57 H Ammonia TSH 3rd Generation 07/21/17 07/22/17 05:07 03:46 PT INR Sodium Potassium Creatinine Total Bilirubin 28.5 H AST 157 H ALT 54 Ammonia 114 H TSH 3rd Generation Phys Exam - Physical Examination Constitutional: NAD + scleral icterus HEENT: PERRLA, oral pharynx no lesions Neck: no JVD, supple Respiratory: no wheezing, clear to auscultation bilateral Cardiovascular: RRR distended, mild fluid wave Gastrointestinal: soft, positive bowel sounds Musculoskeletal: pulses present, edema present Neurological: normal sensation, moves all 4 limbs Psychiatric: A&O x 3 Skin: normal turgor, cap refill <2 seconds Dx/Plan (1) TIMI (acute kidney injury) Code(s): N17.9 - ACUTE KIDNEY FAILURE, UNSPECIFIED Status: Acute Comment: Improved with IVF's, Albumin, avoid nephrotoxic meds and contrast media, continue Midodrine, Prednisolone and Albumin (2) Hepatorenal syndrome Code(s): K76.7 - HEPATORENAL SYNDROME Status: Acute Comment: continue supportive mgmt (3) Hypokalemia Code(s): E87.6 - HYPOKALEMIA Status: Acute Comment: Improved, KCL 40meq daily, repeat K+ level in am (4) Alcoholic hepatitis without ascites Code(s): K70.10 - ALCOHOLIC HEPATITIS WITHOUT ASCITES Status: Chronic Comment: Persistent, supportive measures (5) Cirrhosis Code(s): K74.60 - UNSPECIFIED CIRRHOSIS OF LIVER Status: Chronic Qualifiers: Comment: End-stage process, secondary to ETOH and chronic hep C, MELD score = 36 with 3-month survival around 35-40%, will need referral to transplant service once abstinent from ETOH x 6 months (6) Coagulopathy Status: Chronic Comment: due to cirrhosis, no ASA, NSAIDs - Plan out of bed/ambulate, DVT proph w/SCDs Stable overall -: Hold Lactulose due to increased BM's -: Saline Lock IVF's -: Continue Albumin, Midodrine and Prednisolone -: AM lab: CMP, Ammonia * .
--- NOTE | 2017-07-24 17:15 | PRG ---
DATE OF SERVICE: 07/24/2017 SUBJECTIVE: Patient was seen and examined at bedside and overnight events noted. Patient denies any shortness of breath or chest pain or palpitation. No history of nausea or vomiting or diarrhea or f ever or chills or cramps. OBJECTIVE: GENERAL: This is a well-built female, in no apparent distress. VITAL SIGNS: Temperature 97.7, pulse 71, respiratory rate 16, blood pressure 120/79. HEENT: Atraumatic, normocephalic, oral mucosa is moist. NECK: Supple. CARDIOVASCULAR: S1, S2 heard, rate and rhythm regular. RESPIRATORY: Clear to auscultation. GASTROINTESTINAL: Abdomen is soft. MUSCULOSKELETAL: No tenderness, no edema. DERMATOLOGIC: No skin rash. NEUROLOGIC: Alert and awake and oriented x3. No focal neurologic deficits. Moving all the extremit ies. PSYCHIATRIC: Mood and affect normal. LABORATORY DATA: Potassium is 3.8, BUN is 24, creatinine is 1.2. ASSESSMENT AND PLAN: 1. Acute kidney injury on chronic kidney, stage 3. Renal function has significant improvement, almo st back to normal. 2. Hepatorenal syndrome. Continue supportive care. 3. Hypokalemia, replace and monitor. 4. Hypertension, stable. 5. Edema, controlled. Overall renal function is much better. We will follow.
[2017-07-24] MEDS: Octreotide Acetate 1,250 MCG in Sodium Chloride 0.9% 250 ML 250 ML IVPB SCH (20:03)
[2017-07-25 05:50] LABS: ALT (SGPT) 53 U/L (8-55); AST (SGOT) 102 U/L (5-34); Albumin 3.6 g/dL (3.5-5.0); Alkaline Phosphatase 138 U/L (40-150); Anion Gap 9 mmol/L (10-20); BUN (Urea Nitrogen) 23 mg/dL (7.0-18.7); Bilirubin, Total 24.1 mg/dL (0.2-1.2); Calc. Creatinine Clearance 130 mL/min (70-130); Calcium 8.8 mg/dL (7.8-10.44); Carbon Dioxide 19 mmol/L (22-29); Chloride 114 mmol/L (98-107); Estimated GFR-MDRD 55; Globulin 2.2 g/dL (2.4-3.5); Glucose 104 mg/dL (70-105); Potassium 3.7 mmol/L (3.5-5.1); Protein, Total 5.8 g/dL (6.0-8.3); Sodium 138 mmol/L (136-145)
[2017-07-25] MEDS: Albumin 25% 25 GM/100 ML BOT IVPB SCH (08:13)
[2017-07-25] MEDS: Midodrine HCl 5 MG TAB PO SCH (08:13)
[2017-07-25] MEDS: Potassium Chloride 20 MEQ TAB PO SCH (08:13)
[2017-07-25] MEDS: prednisoLONE 15 MG/5 ML UDCUP PO SCH (08:29)
--- NOTE | 2017-07-25 15:43 | PRG ---
DATE OF SERVICE: 07/25/2017 SUBJECTIVE: She has no acute complaints today. No abdominal pain. OBJECTIVE: VITAL SIGNS: Temperature 97.7, pulse 86, blood pressure 112/64. GENERAL: She is jaundiced, in no acute distress, alert and oriented x3. LUNGS: Clear to auscultation bilaterally. HEART: Regular rate and rhythm. ABDOMEN: Soft, nontender, nondistended. Bowel sounds are present. EXTREMITIES: 2+ pitting lower extremity edema. LABORATORY DATA: White blood cell count 5.9, hemoglobin 11.6, platelets 39,000. Creatinine is down to 1.07 today, bilirubin has decreased to 24.1, albumin 3.6. IMPRESSION: 1. Severe acute alcoholic hepatitis. She has received 1-week of prednisolone at 40 mg daily. She w ill continue 40 mg daily for the next 21 days and then taper down to 30 mg for 4 days, then 20 mg for 4 days, then 10 mg for 4 days, then 5 mg for 4 days and then discontinue. 2. Decompensated cirrhosis. 3. Acute renal failure. Her creatinine has shown marked improvement with infusion of albumin, octre otide and oral midodrine. I will stop these medications today. 4. Chronic hepatitis C. 5. Ascites and lower extremity edema. RECOMMENDATIONS: 1. Prednisone taper as stated above. 2. Today, we will discontinue octreotide, albumin and midodrine. 3. Continue lactulose. This should be titrated to three soft stools per day. 4. Low-salt diet. 5. Dr. Akins will cover the weekend.
--- NOTE | 2017-07-25 17:41 | PDOC.PN ---
- Subjective Encounter Start Date: 07/25/17 Encounter Start Time: 17:35 Subjective: f/u for ETOH-induced hepatitis and advanced cirrhosis. Tx with Octreotide, -: Midodrine and Albumin for TIMI which is resolving. Overall feels better. - Objective Resuscitation Status: Resuscitation Status FULL:Full Resuscitation MAR Reviewed: Yes Vital Signs & Weight: Vital Signs (12 hours) Temp Pulse Resp BP Pulse Ox 07/25/17 08:00 97.7 F 86 16 112/64 95 Weight Weight 273 lb 3.2 oz I&O: 07/24/17 07/25/17 07/26/17 06:59 06:59 06:59 Intake Total 1120 620 Balance 1120 620 Result Diagrams: 07/24/17 03:30 07/25/17 05:32 Additional Labs: Laboratory Tests 07/18/17 07/18/17 07/19/17 09:25 16:01 04:35 PT INR Sodium 125 L 123 L Potassium 3.0 L 3.0 L Creatinine 1.95 H 2.08 H Total Bilirubin 26.6 H AST 221 H ALT 67 H Ammonia TSH 3rd Generation 0.4573 07/19/17 07/20/17 07/20/17 16:14 04:34 04:34 PT 27.0 H INR 2.4 Sodium 125 L 128 L Potassium 2.9 L* 3.1 L Creatinine 2.12 H 2.01 H Total Bilirubin 28.9 H AST 181 H ALT 57 H Ammonia TSH 3rd Generation 07/21/17 07/22/17 05:07 03:46 PT INR Sodium Potassium Creatinine Total Bilirubin 28.5 H AST 157 H ALT 54 Ammonia 114 H TSH 3rd Generation Phys Exam - Physical Examination Constitutional: NAD + scleral icterus HEENT: PERRLA, oral pharynx no lesions Neck: no JVD, supple Respiratory: no wheezing, clear to auscultation bilateral Cardiovascular: RRR distention Gastrointestinal: soft, non-tender, positive bowel sounds Musculoskeletal: pulses present, edema present Neurological: normal sensation, moves all 4 limbs Psychiatric: A&O x 3 Deviation from normal: + jaundice Skin: normal turgor, cap refill <2 seconds Dx/Plan (1) TIMI (acute kidney injury) Code(s): N17.9 - ACUTE KIDNEY FAILURE, UNSPECIFIED Status: Acute Comment: Improved with IVF's, Albumin, avoid nephrotoxic meds and contrast media, d/c Midodrine, Octreotide and Albumin (2) Hepatorenal syndrome Code(s): K76.7 - HEPATORENAL SYNDROME Status: Acute Comment: continue supportive mgmt, see #1 (3) Hypokalemia Code(s): E87.6 - HYPOKALEMIA Status: Acute Comment: Improved, KCL 40meq daily, repeat K+ level in am (4) Alcoholic hepatitis without ascites Code(s): K70.10 - ALCOHOLIC HEPATITIS WITHOUT ASCITES Status: Chronic Comment: Continue Prednisolone with slow taper (5) Cirrhosis Code(s): K74.60 - UNSPECIFIED CIRRHOSIS OF LIVER Status: Chronic Qualifiers: Comment: End-stage process, secondary to ETOH and chronic hep C, MELD score = 36 with 3-month survival around 35-40%, will need referral to transplant service once abstinent from ETOH x 6 months (6) Coagulopathy Status: Chronic Comment: due to cirrhosis, no ASA, NSAIDs - Plan plan discussed w/ family, addiction social worker, out of bed/ambulate Continue Prednisolone with tapering regimen -: Lactulose titrated to 2-3 stools/day -: Continue KCL 40meq po daily -: OOB/ambulate -: Likely outpt referral to transplant program when ETOH abstinent * Likely home in 24-48h
--- NOTE | 2017-07-25 23:25 | PRG ---
DATE OF SERVICE: 07/25/2017 SUBJECTIVE: Patient was seen and examined at bedside and overnight events noted. Patient denies any shortness of breath or chest pain or palpitation. No history of nausea or vomitin g or diarrhea or fever or chills or cramps. OBJECTIVE: GENERAL: This is a obese female, in no apparent distress. VITAL SIGNS: Temperature 97.7, pulse , respiratory rate 18, blood pressure 112/64. HEENT: Atraumatic, normocephalic. Oral mucosa is moist NECK: Supple. CARDIOVASCULAR: S1 and S2 heard. Rate and rhythm regular. RESPIRATORY: Clear to auscultation. GASTROINTESTINAL: Abdomen is soft. MUSCULOSKELETAL: No tenderness. No edema. DERMATOLOGIC: No skin rash. NEUROLOGIC: Alert and awake and oriented X3, No focal neurologic deficits. Moving all the extremitie s. PSYCHIATRIC: Mood and affect normal. LABORATORY DATA: Potassium is 3.7, BUN 73, creatinine is 1.07. ASSESSMENT AND PLAN: 1. Acute kidney injury on chronic kidney disease 3. 2. Renal function is much better. Creatinine is 1.07. 3. Acidosis. 4. Hepatorenal syndrome. 5. Edema, controlled. 6. Hypertension. 7. Hypokalemia, replaced. 8. Renal function is much better. I will sign off. Please call back with any questions.
[2017-07-26] MEDS: diphenhydrAMINE 25 MG CAP PO PRN (00:38)
[2017-07-26] MEDS: Potassium Chloride 20 MEQ TAB PO SCH (08:18)
[2017-07-26] MEDS: prednisoLONE 15 MG/5 ML UDCUP PO SCH (08:19)
--- NOTE | 2017-07-26 14:39 | PDOC.PN ---
- Subjective Encounter Start Date: 07/26/17 Encounter Start Time: 14:38 Ms. Whitman was seen today in follow-up. She says she feels much better today. She denies abdominal pain, no nausea or vomiting. She has ambulated some. - Objective Resuscitation Status: Resuscitation Status FULL:Full Resuscitation MAR Reviewed: Yes Vital Signs & Weight: Vital Signs (12 hours) Temp Pulse Resp BP Pulse Ox 07/26/17 08:00 98.0 F 71 16 93 L 07/26/17 07:50 98.0 F 71 16 109/67 93 L Weight Weight 273 lb 3.2 oz I&O: 07/25/17 07/26/17 07/27/17 06:59 06:59 06:59 Intake Total 620 Balance 620 Result Diagrams: 07/24/17 03:30 07/25/17 05:32 Phys Exam - Physical Examination HEENT: PERRLA + sclera icteric Respiratory: no wheezing, no rales, no rhonchi, clear to auscultation bilateral Cardiovascular: RRR, no significant murmur, no rub Gastrointestinal: soft, non-tender, positive bowel sounds Musculoskeletal: edema present 2+ pitting edema Dx/Plan (1) TIMI (acute kidney injury) Code(s): N17.9 - ACUTE KIDNEY FAILURE, UNSPECIFIED Status: Acute Comment: Improved with IVF's, Albumin, avoid nephrotoxic meds and contrast media, d/c Midodrine, Octreotide and Albumin (2) Hepatorenal syndrome Code(s): K76.7 - HEPATORENAL SYNDROME Status: Acute Comment: continue supportive mgmt, see #1 (3) Alcohol dependence Code(s): F10.20 - ALCOHOL DEPENDENCE, UNCOMPLICATED Status: Chronic Qualifiers: Substance use status: in withdrawal Comment: on meds, ASE scores (4) Alcoholic hepatitis without ascites Code(s): K70.10 - ALCOHOLIC HEPATITIS WITHOUT ASCITES Status: Chronic Comment: Continue Prednisolone with slow taper (5) Coagulopathy Status: Chronic Comment: due to cirrhosis, no ASA, NSAIDs - Plan * Acute Alcoholic Hepatitis- This has imnproved since admission- she is on a Prednisone patsy * Midodrine, Albumin, and Octreotide have been discontinued- will re-check renal function in the AM * Acute Kidney injury- improved * HTN- blood pressure is stable. * Home soon
--- NOTE | 2017-07-26 17:31 | PRG ---
DATE OF SERVICE: 07/26/2017 REASON FOR CONSULTATION: Alcoholic hepatitis. SUBJECTIVE: No acute events or problems overnight. The patient states that she is feeling better to day, and currently, denies any nausea, vomiting, fevers, chills, shortness of breath, abdominal pain, GI bleeding, odynophagia, or dysphagia. OBJECTIVE: VITAL SIGNS: Temperature of 98, pulse 71, blood pressure 109/67, respiratory rate 16, satting 93% on room air. GENERAL: The patient lying in bed in no acute distress. Alert and oriented x4. CARDIOVASCULAR: Regular rate and rhythm with no discernible murmurs, gallops, or rubs. RESPIRATORY: Clear to auscultation bilaterally with no discernible wheezes or rales. ABDOMEN: Soft, nontender, normoactive bowel sounds. Mild abdominal distention. EXTREMITIES: A 2+ bilateral lower extremity edema to mid mcmillan. LABORATORY DATA: No current labs are available for review today. IMAGING DATA: No current GI imaging is available for review. ASSESSMENT AND PLAN: The patient is a 46-year-old female with past medical history of alcoholic hepa titis and alcohol abuse, presenting with alcoholic hepatitis. Alcoholic hepatitis. The patient presented with acute onset of jaundice as well as elevated LFTs on admission consistent with a diagnosis of severe acute alcoholic hepatitis. She also had worsening re nal function concerning for hepatorenal syndrome and was placed on midodrine, octreotide, and prednis olone for this particular condition. While on these medications, she has improved significantly with her liver function tests yesterday down trending more towards normal and is currently asymptomatic a t the current point in time. RECOMMENDATIONS: 1. We would continue patient on prednisolone 40 mg daily, and continue daily over the next 21 days a nd then taper down to 30 mg for 4 days, 20 mg for 4 days, 10 mg for 4 days, and 5 mg for 4 days with discontinuation after that. 2. We would continue low sodium (less than 2000 mg daily) high protein diet as part of diet associat ed with cirrhosis. 3. Continue lactulose administration and titrate to goal of 3 bowel movements per day. We will continue to monitor. Please call with any questions.
[2017-07-27 05:22] LABS: Anion Gap 10 mmol/L (10-20); BUN (Urea Nitrogen) 22 mg/dL (7.0-18.7); Calc. Creatinine Clearance 154 mL/min (70-130); Calcium 8.9 mg/dL (7.8-10.44); Carbon Dioxide 19 mmol/L (22-29); Chloride 114 mmol/L (98-107); Estimated GFR-MDRD 68; Glucose 133 mg/dL (70-105); Potassium 3.7 mmol/L (3.5-5.1); Sodium 139 mmol/L (136-145)
[2017-07-27 05:29] LABS: #Eosinphils 0.1 thou/uL (0.0-0.7); #Lymphocytes 1.1 thou/uL (1.20-3.40); #Monocytes 0.6 thou/uL (0.11-0.59); #Neutrophils 4.1 thou/uL (1.40-6.50); %Eosinophils 1.1 % (0.0-10.0); %Lymphocytes 19.5 % (21.0-51.0); %Monocytes 9.6 % (0.0-10.0); %Neutrophils 69.8 % (42.0-75.0); Hemoglobin 11.7 g/dL (12.0-16.0); Mean Corpuscular HGB CONC 32.7 g/dL (32.0-36.0); Mean Corpuscular Hemoglobin 34.9 pg (27.0-31.0); Mean Platelet Volume 8.7 fL (7.4-10.4); Platelet Count 26 thou/uL (130-400); Red Blood Cell (RBC) Count 3.34 mill/uL (4.20-5.40); White Blood Cell (WBC) Count 5.8 thou/uL (4.8-10.8)
[2017-07-27] MEDS: Potassium Chloride 20 MEQ TAB PO SCH (08:08)
[2017-07-27] MEDS: prednisoLONE 15 MG/5 ML UDCUP PO SCH (08:09)
[2017-07-27 11:48] LABS: ALT (SGPT) 55 U/L (8-55); AST (SGOT) 77 U/L (5-34); Albumin 3.4 g/dL (3.5-5.0); Alkaline Phosphatase 173 U/L (40-150); Bilirubin, Total 22.5 mg/dL (0.2-1.2); Protein, Total 5.8 g/dL (6.0-8.3)
[2017-07-27 12:19] LABS: Bilirubin, Direct 14.2 mg/dL (0.1-0.3)
--- NOTE | 2017-07-27 13:57 | PDOC.PN ---
- Subjective Encounter Start Date: 07/27/17 Encounter Start Time: 13:55 Ms. Whitman was seen today in follow-up. She does not have any complaints this morning. she denies abdominal pain or nausea. - Objective Resuscitation Status: Resuscitation Status FULL:Full Resuscitation MAR Reviewed: Yes Vital Signs & Weight: Vital Signs (12 hours) Temp Pulse Resp BP Pulse Ox 07/27/17 08:34 97.6 F 79 16 115/67 96 07/27/17 08:00 97.6 F 79 16 96 Weight Weight 273 lb 3.2 oz I&O: 07/26/17 07/27/17 07/28/17 06:59 06:59 06:59 Intake Total 1500 Balance 1500 Result Diagrams: 07/27/17 04:05 07/27/17 04:05 Phys Exam - Physical Examination HEENT: PERRLA Respiratory: no wheezing, no rales, no rhonchi, clear to auscultation bilateral Cardiovascular: RRR, no significant murmur Gastrointestinal: soft, non-tender, positive bowel sounds Musculoskeletal: edema present 2-3 + pitting edema Dx/Plan (1) TIMI (acute kidney injury) Code(s): N17.9 - ACUTE KIDNEY FAILURE, UNSPECIFIED Status: Acute Comment: Improved with IVF's, Albumin, avoid nephrotoxic meds and contrast media, d/c Midodrine, Octreotide and Albumin (2) Hepatorenal syndrome Code(s): K76.7 - HEPATORENAL SYNDROME Status: Acute Comment: continue supportive mgmt, see #1 (3) Alcohol dependence Code(s): F10.20 - ALCOHOL DEPENDENCE, UNCOMPLICATED Status: Chronic Qualifiers: Substance use status: in withdrawal Comment: on meds, ASE scores (4) Alcoholic hepatitis without ascites Code(s): K70.10 - ALCOHOLIC HEPATITIS WITHOUT ASCITES Status: Chronic Comment: Continue Prednisolone with slow taper (5) Coagulopathy Status: Chronic Comment: due to cirrhosis, no ASA, NSAIDs - Plan * Acute alcoholic Hepatitis- improving- continue Prednisone, on a slow patsy * Thrombocytopenia- from alcoholic liver disease- will re-check in the AM if below 20K will transfuse * Acute renal failure- improved- and renal function is stable off Midodrine, Albumin, and Octreotide.
--- NOTE | 2017-07-27 21:53 | PRG ---
DATE OF SERVICE: 07/27/2017 REASON FOR CONSULTATION: Alcoholic hepatitis. SUBJECTIVE: No acute events or problems overnight. The patient states that she is feeling good toda y without any problems. Currently, denies any nausea, vomiting, fevers, chills, shortness of breath, abdominal pain, GI bleeding, odynophagia, or dysphagia. OBJECTIVE: VITAL SIGNS: Temperature 97.6, pulse 80, blood pressure 114/66, respiratory rate is 18, satting 95% on room air. GENERAL: Patient lying in bed in no acute distress. Alert and oriented x4. CARDIOVASCULAR: Regular rate and rhythm, but no discernible murmurs, gallops, or rubs. RESPIRATORY: Clear to auscultation bilaterally with no discernible wheezes or rales. ABDOMEN: Soft, nontender, mild abdominal distention with normoactive bowel sounds. EXTREMITIES: 2+ bilateral lower extremity edema to mid mcmillan. LABORATORY DATA: CBC with a white blood cell count of 5.8, hemoglobin 11.7, hematocrit 35.6, platele ts 26. Chemistry with sodium of 139, potassium 3.7, chloride 114, CO2 of 19, BUN 22, creatinine 0.9, glucose 133. AST 77, ALT 55, alkaline phosphatase 173, total bilirubin 22.5. IMAGING DATA: No current GI imaging is available for review. ASSESSMENT AND PLAN: Patient is a 46-year-old female with past medical history of alcoholic hepatiti s and alcohol abuse presenting with acute exacerbation of alcoholic hepatitis. Alcoholic hepatitis: The patient presented with acute onset of jaundice as well as elevated LFTs on admissions consistent with diagnosis of severe alcoholic hepatitis. During this admission, she also had worsening renal fu nction concerning for hepatorenal syndrome, but with administration of midodrine, octreotide, and pre dnisolone, she responded well with improvement in her renal function. At this point in time, she con tinues to have downtrending LFTs as well as total bilirubin and normal creatinine indicating adequate response to treatment. RECOMMENDATIONS: 1. Would continue the patient on prednisolone 40 mg daily and continue over the next 21 days with a taper listed in prior progress notes. 2. Would continue low-sodium, high-protein diet. 3. Continue lactulose administration and titrate to goal of 3 bowel movements per day. We will sign off at this time, please call with any questions. From a GI standpoint, patient is okay to be discharged, but would place the scheduled appointment for GI follow up within 2 weeks of disch arge.
[2017-07-27] MEDS: diphenhydrAMINE 25 MG CAP PO PRN (23:53)
[2017-07-28 06:34] LABS: #Basophils 0.1 thou/uL (0.0-0.2); #Eosinphils 0.1 thou/uL (0.0-0.7); #Lymphocytes 1.1 thou/uL (1.20-3.40); #Monocytes 0.7 thou/uL (0.11-0.59); #Neutrophils 4.7 thou/uL (1.40-6.50); %Eosinophils 0.8 % (0.0-10.0); %Lymphocytes 16.5 % (21.0-51.0); %Neutrophils 71.7 % (42.0-75.0); Mean Corpuscular HGB CONC 32.8 g/dL (32.0-36.0); Mean Corpuscular Hemoglobin 34.5 pg (27.0-31.0); Mean Platelet Volume 8.4 fL (7.4-10.4); Platelet Count 26 thou/uL (130-400); RBC Distribution Width 15.2 % (11.5-14.5); Red Blood Cell (RBC) Count 3.48 mill/uL (4.20-5.40); White Blood Cell (WBC) Count 6.5 thou/uL (4.8-10.8)
[2017-07-28 06:49] LABS: ALT (SGPT) 55 U/L (8-55); AST (SGOT) 74 U/L (5-34); Albumin 3.2 g/dL (3.5-5.0); Alkaline Phosphatase 163 U/L (40-150); Anion Gap 8 mmol/L (10-20); BUN (Urea Nitrogen) 20 mg/dL (7.0-18.7); Bilirubin, Total 19.5 mg/dL (0.2-1.2); Calc. Creatinine Clearance 164 mL/min (70-130); Calcium 8.7 mg/dL (7.8-10.44); Carbon Dioxide 21 mmol/L (22-29); Chloride 112 mmol/L (98-107); Estimated GFR-MDRD 72; Glucose 93 mg/dL (70-105); Potassium 3.6 mmol/L (3.5-5.1); Protein, Total 5.7 g/dL (6.0-8.3); Sodium 137 mmol/L (136-145)
[2017-07-28 06:55] LABS: Bilirubin, Direct Greater than 10.0 mg/dL (0.1-0.3)
[2017-07-28] MEDS: Potassium Chloride 20 MEQ TAB PO SCH (08:57)
[2017-07-28] MEDS: prednisoLONE 15 MG/5 ML UDCUP PO SCH (08:57)
[2017-07-28 14:38] VITALS: BMI 40.2
--- NOTE | 2017-07-28 15:23 | PDOC.PN ---
- Subjective Encounter Start Date: 07/28/17 Encounter Start Time: 15:17 Ms. Whitman was seen today in follow-up. She does not have any complaints. - Objective Resuscitation Status: Resuscitation Status FULL:Full Resuscitation MAR Reviewed: Yes Vital Signs & Weight: Vital Signs (12 hours) Temp Pulse Resp BP Pulse Ox 07/28/17 08:00 97.7 F 77 16 97 07/28/17 07:35 97.7 F 77 16 109/68 97 Weight Admit Weight 273 lb 3.2 oz Weight 305 lb 4.8 oz I&O: 07/27/17 07/28/17 07/29/17 06:59 06:59 06:59 Intake Total 1500 1800 Output Total 2 Balance 1500 1798 Result Diagrams: 07/28/17 06:22 07/28/17 06:22 Phys Exam - Physical Examination HEENT: PERRLA Respiratory: no wheezing, no rales, no rhonchi, clear to auscultation bilateral Cardiovascular: RRR, no significant murmur Gastrointestinal: soft, non-tender, positive bowel sounds Musculoskeletal: edema present 2+ pitting edema bilaterally Dx/Plan (1) TIMI (acute kidney injury) Code(s): N17.9 - ACUTE KIDNEY FAILURE, UNSPECIFIED Status: Acute Comment: Improved with IVF's, Albumin, avoid nephrotoxic meds and contrast media, d/c Midodrine, Octreotide and Albumin (2) Hepatorenal syndrome Code(s): K76.7 - HEPATORENAL SYNDROME Status: Acute Comment: continue supportive mgmt, see #1 (3) Alcohol dependence Code(s): F10.20 - ALCOHOL DEPENDENCE, UNCOMPLICATED Status: Chronic Qualifiers: Substance use status: in withdrawal Comment: on meds, ASE scores (4) Alcoholic hepatitis without ascites Code(s): K70.10 - ALCOHOLIC HEPATITIS WITHOUT ASCITES Status: Chronic Comment: Continue Prednisolone with slow taper (5) Coagulopathy Status: Chronic Comment: due to cirrhosis, no ASA, NSAIDs - Plan * Alcoholic Hepatitis- improved * Acute renal failure from hepatorenal syndrome- also improved * Thrombocytopenia- platelet count has remained at 26K- hopefully this is the lucero * Discharge disposition as per Gastroenterology.
[2017-07-28] MEDS: diphenhydrAMINE 25 MG CAP PO PRN (23:20)
[2017-07-29 07:47] VITALS: BP 102/64; TEMP 98
[2017-07-29] MEDS: Potassium Chloride 20 MEQ TAB PO SCH (08:58)
[2017-07-29] MEDS: prednisoLONE 15 MG/5 ML UDCUP PO SCH (09:00)
--- NOTE | 2017-07-29 12:16 | DIS ---
DATE OF ADMISSION: 07/17/2017 DATE OF DISCHARGE: 07/29/2017 DISCHARGE DISPOSITION: Home. FINAL DIAGNOSES: Acute alcoholic hepatitis, coagulopathy with thrombocytopenia, elevated protime, ac jena hepatorenal syndrome resolved, alcoholism, and hepatic encephalopathy. DISCHARGE MEDICATIONS: Prednisone 40 mg a day for 21 days, then a rapid taper, lactulose 20 grams da tariq, Zofran 4 mg oral dissolving tablet q.6 hours p.r.n. ALLERGIES: No known drug allergies. CODE STATUS: FULL. PENDING AT THE TIME OF DISCHARGE: Nothing. HOSPITAL COURSE: Patient admitted to [facility] for abdominal pain and acute kidney i njury. Patient was found to have acute alcoholic hepatitis with initial bilirubin of 26.6, AST 216, ALT 66, creatinine 1.94, BUN 25, and sodium 128. CBC: White count 5.9, hemoglobin 12.3, platelet co unt 49,000. Platelet count has remained low. In past 2 days, it has been 26,000. No evidence of bl eeding. Her initial ammonia was elevated at 114 with lactulose. Her renal function has slowly progr essed to normal. Her bilirubin has dropped from its initial 26.6-19.5. She was seen in consultation by Dr. Nick Lee, Nephrology and Dr. Martin Pool, Gastroenterology. She was begun on IV steroids for acute alcoholic hepatitis. She was also treated with IV midodrine, octreotide, IV albumin. She was eventually weaned off of those, wean to oral prednisone. No evidence of significant GI bleeding dur ing her hospital stay. Her hemoglobin remained stable. She is currently desirous of going home. Juanito patel is jaundiced. Her vital signs are stable. Abdomen is benign. The only procedure during her [facility] stay was a PICC line. She is being discharged now for outpatient therapy. Recommendation per [place] stro[facility]ology is 21 days of prednisone 40 mg a day and then a taper. The patient has been advised t o see. Has been given a prescription for prednisone 40 mg a day for 21 days and to see Gastroenterol kiya within 3 weeks to discuss further of tapering. She has also been placed on lactulose. She is munguia ving 3-4 stools a day. She has been advised on a low salt high protein diet.
== END 2017-07-29 15:00 | disposition home or self-care (01) | DRG 432 ==
LOC: T4-B 16:53
PROVIDERS: ADMIT Internal Medicine Addiction Medicine; ATTEND Internal Medicine Addiction Medicine
PROC: 02HV33Z Insertion of Infusion Device into Superior Vena Cava, Percutaneous Approach (ICD-10-PCS; principal; 2017-07-23)
PROC: B518ZZA Fluoroscopy of Superior Vena Cava, Guidance (ICD-10-PCS; 2017-07-23)
DX: K70.10 Alcoholic hepatitis without ascites (principal); K76.7 Hepatorenal syndrome; K70.40 Alcoholic hepatic failure without coma; N17.9 Acute kidney failure, unspecified; D68.4 Acquired coagulation factor deficiency; D69.59 Other secondary thrombocytopenia; M35.1 Other overlap syndromes; K76.6 Portal hypertension; D64.9 Anemia, unspecified; E86.0 Dehydration; F10.20 Alcohol dependence, uncomplicated; N18.9 Chronic kidney disease, unspecified; E87.6 Hypokalemia; K74.69 Other cirrhosis of liver; B18.2 Chronic viral hepatitis C
CPT/HCPCS: 36415; 36416; 36569; 80048; 80053; 80076; 81001; 82140; 83935; 84300; 84443; 85007; 85025; 85027; 85610; A4216; C1751; J1200; J1644; J2354; J2405; J3430; J7050; P9047

== ENCOUNTER 2017-10-31 12:57 | Outpatient (CLI) | payer OTHER ==
--- NOTE | 2017-10-31 14:54 | ULT ---
ULTRASOUND WITH DOPPLER DUPLEX VENOUS LOWER EXTREMITY LEFT: HISTORY: 46-year-old female with left lower extremity edema. TECHNIQUE: Color flow Doppler, spectral waveform analysis of pulsed Doppler, and perez-scale imaging with doug demetri and augmentation, were used to evaluate the left common femoral, femoral, popliteal, posterior t ibial, and superficial femoral, veins; and the proximal portions of the profunda femoral and greater saphenous, veins. FINDINGS: There is normal compressibility, demonstration of blood flow by color Doppler and pulsed Doppler, and response to augmentation, in all interrogated veins. IMPRESSION: Negative. No deep vein thrombosis in the left lower extremity. jn[] POS: [facility]
== END 2017-10-31 12:58 | disposition home or self-care (01) ==
LOC: SCSULT 12:57
PROVIDERS: ATTEND Family Medicine
DX: R60.9 Edema, unspecified (principal)

== ENCOUNTER 2019-07-22 10:29 | Outpatient (CLI) | payer OTHER ==
--- NOTE | 2019-07-22 11:12 | ULT ---
Hepatic ultrasound with duplex evaluation INDICATION: Cirrhosis TECHNIQUE: Grayscale, color Doppler and spectral Doppler images were obtained of the liver, gallbladd er, common bile duct, pancreas, right kidney and spleen. COMPARISON: None FINDINGS: Liver: The left hepatic lobe was not well seen due to overlying bowel gas. No focal hepatic lesion is identified. The liver measures 16.6 cm in length. Hepatic vasculature: Left hepatic vein: Appropriate flow. Middle hepatic vein: Appropriate flow. Right hepatic vein: Appropriate flow. Hepatic artery: Hepatopedal flow. Main portal vein: Hepatopedal flow. Right portal vein: Hepatopedal flow. Left portal vein: Hepatopedal flow. Splenic artery: Appropriate flow. Splenic vein: Hepatopedal flow. Aorta: Appropriate flow. IVC: Appropriate flow. Gallbladder: Numerous gallstones are present within the gallbladder. No gallbladder wall thickening o r pericholecystic fluid is identified. No sonographic James sign is reported. Common bile duct: 4.2 mm. Pancreas: Pancreas is largely obscured by overlying bowel gas Right kidney: Visualized aspects of the right kidney appeared within normal limits Spleen: The spleen measured 13.8cm in length. IMPRESSION: 1. Cirrhosis with findings of portal hypertension. 2. Cholelithiasis. 3. Appropriate hepatopedal flow identified.
== END 2019-07-22 10:30 | disposition home or self-care (01) ==
LOC: BICULT 10:29
PROVIDERS: ATTEND Internal Medicine Gastroenterology
DX: K74.69 Other cirrhosis of liver (principal); R10.12 Left upper quadrant pain; K86.2 Cyst of pancreas; K22.10 Ulcer of esophagus without bleeding; K80.20 Calculus of gallbladder without cholecystitis without obstruction; K76.6 Portal hypertension; Z80.0 Family history of malignant neoplasm of digestive organs
CPT/HCPCS: 76705

== ENCOUNTER 2022-03-07 08:20 | Outpatient (CLI) | payer OTHER | END 2022-03-07 08:21 | disposition home or self-care (01) | LOC: BICCT 08:20 | PROVIDERS: ATTEND Physician Assistant Medical | DX: K74.60 Unspecified cirrhosis of liver (principal); K86.2 Cyst of pancreas | CPT/HCPCS: 74170 ==